=== PATIENT | male | born 1940 | race Caucasian/White ===

== ENCOUNTER 2018-02-13 12:39 | Day surgery (SDC) | payer OTHER ==
[2018-02-13] MEDS: NS 1,000 ML IV (12:45)
[2018-02-13] MEDS ORDERED: PROPOFOL 200 MG/20 ML VIAL As Ordered (14:27)
[2018-02-13] MEDS ORDERED: LIDOCAINE 2% INJ 100 MG/5 ML SDV (FOR ANES.) As Ordered (14:27)
== END 2018-02-13 15:18 | disposition home or self-care (01) ==
LOC: M OPP 12:39
DX: K62.5 Hemorrhage of anus and rectum (principal); R63.4 Abnormal weight loss; K56.699 Other intestinal obstruction unspecified as to partial versus complete obstruction; K64.0 First degree hemorrhoids; K57.30 Diverticulosis of large intestine without perforation or abscess without bleeding; I10 Essential (primary) hypertension; I25.10 Atherosclerotic heart disease of native coronary artery without angina pectoris; Z86.14 Personal history of Methicillin resistant Staphylococcus aureus infection; F41.9 Anxiety disorder, unspecified; G47.30 Sleep apnea, unspecified; F17.210 Nicotine dependence, cigarettes, uncomplicated; Z79.82 Long term (current) use of aspirin; Z79.899 Other long term (current) drug therapy
CPT/HCPCS: 45378

== ENCOUNTER 2019-09-30 16:34 | Inpatient (IN) | payer OTHER, MEDICARE ==
[~2019-09-30] VITALS: Ht 170.2 cm; Wt 83.9 kg
[~2019-09-30 16:34] MED LIST: ALLO100T PO; ASPI81TA26 PO; COLA100C5 PO; LISI40TA PO; METO1TAB33 PO; PRAZ2CAP PO; TRAZ-257 PO; VENL1TAB35 PO
[2019-09-30] MEDS ORDERED: NS 1,000 ML IV ONE (17:15)
[2019-09-30] MEDS ORDERED: SIMETHICONE 80 MG CHEW TAB PO ONE (17:15)
[2019-09-30 17:50] LABS: BASO # 0.1 10^3/uL (0.0-0.2); BASO % 0.3 % (0.0-1.0); EOS % 0.1 % (0.0-3.0); HEMATOCRIT 55.7 % (42.0-52.0); HEMOGLOBIN 18.5 g/dl (13.5-17.5); LYMPH # 1.4 10^3/uL (1.5-5.0); LYMPH % 8.4 % (24.0-44.0); MEAN CORPUSCULAR HEMOGLOBIN 31.6 pg (27.0-33.0); MEAN CORPUSCULAR HGB CONC 33.2 g/dl (32.0-36.5); MEAN CORPUSCULAR VOLUME 95.2 fl (80.0-96.0); MONO # 1.2 10^3/uL (0.0-0.8); MONO % 7.1 % (0.0-5.0); NEUTROPHILS # 14.1 10^3/uL (1.5-8.5); NEUTROPHILS % 83.6 % (36.0-66.0); PLATELET COUNT, AUTOMATED 313 10^3/uL (150-450); RED BLOOD COUNT 5.85 10^6/uL (4.30-6.10); WHITE BLOOD COUNT 16.9 10^3/uL (4.0-10.0)
--- NOTE | 2019-09-30 18:03 | REP ---
CHEST, SINGLE VIEW: Single view of the chest is performed and compared to prior study of 12/26/2011. There is mild interstitial fibrosis. There is no acute infiltrate. Heart is not enlarged. Mediastinal silhouette is unchanged. Metallic clips are seen over the left hemithorax. IMPRESSION: Stable chronic findings without acute infiltrate. Electronically Signed by Christiano Van MD 09/30/2019 08:01 P
[2019-09-30] MEDS: GASTROGRAFIN SOLUTION 30ML PO SCH ×2 (18:06→18:44)
[2019-09-30 18:11] LABS: ALBUMIN 3.9 GM/DL (3.2-5.2); ALT/SGPT 29 U/L (12-78); AMYLASE 29 U/L (25-115); BILIRUBIN,DIRECT 0.3 MG/DL (0.0-0.2); BILIRUBIN,TOTAL 0.9 MG/DL (0.2-1.0); BLOOD UREA NITROGEN 16 MG/DL (7-18); CALCIUM LEVEL 8.9 MG/DL (8.8-10.2); CARBON DIOXIDE LEVEL 29 MEQ/L (21-32); CHLORIDE LEVEL 96 MEQ/L (98-107); CK-MB VALUE MASS 2.5 NG/ML (<3.6); CPK CREATINE PHOSPHOKINASE 85 U/L (39-308); CREATININE FOR GFR 1.24 MG/DL (0.70-1.30); GLOMERULAR FILTRATION RATE 59.9 (>42); GLUCOSE, FASTING 149 MG/DL (70-100); LIPASE 31 U/L (73-393); MB/CK RELATIVE INDEX 2.94 (< OR =4); NT-PRO BNP 325 PG/ML (<450); POTASSIUM SERUM 3.7 MEQ/L (3.5-5.1); SODIUM LEVEL 134 MEQ/L (136-145); TOTAL PROTEIN 8.6 GM/DL (6.4-8.2); TROPONIN I < 0.02 NG/ML (< 0.10)
[2019-09-30] MEDS ORDERED: ISOVUE-370 76% 100ML VIAL As Ordered ONE (19:44)
--- NOTE | 2019-09-30 20:45 | REPVR ---
PROCEDURE INFORMATION: Exam: CT Abdomen And Pelvis With Contrast Exam date and time: 09/30/2019 8:07 PM Age: 79 years old Clinical indication: Abdominal pain; Additional info: Rlq abd pain TECHNIQUE: Imaging protocol: Computed tomography of the abdomen and pelvis with intravenous contrast. Radiation optimization: All CT scans at this facility use at least one of these dose optimization techniques: automated exposure control; mA and/or kV adjustment per patient size (includes targeted exams where dose is matched to clinical indication); or iterative reconstruction. Contrast material: ISO 370; Contrast volume: 100 ml; Contrast route: IV; COMPARISON: No relevant prior studies available. FINDINGS: Heart: The heart is mildly enlarged. There is thickening of the wall of the right ventricle at the apex of the heart. Coronary artery and aortic valve calcifications are present. There is no pericardial effusion. Lungs: There are centrilobular emphysematous changes and subpleural reticulation in the lung bases. Mediastinum: There is a small sliding hiatal hernia. Liver: There is fatty infiltration of the liver with focal fatty sparing adjacent to the gallbladder fossa. The contour of the liver is smooth. No liver mass or hepatomegaly is noted. Gallbladder and bile ducts: The gallbladder is distended. No calcified gallstones are seen. No gallbladder wall thickening, pericholecystic fluid, or pericholecystic inflammatory changes are identified. No dilation of the bile ducts is noted. No calcified stones are seen in the common bile duct. Pancreas: There are a few calcifications in the pancreas, which are the sequela of chronic pancreatitis. There is no inflammatory fat stranding around the pancreas to indicate acute pancreatitis. No pancreatic mass is noted. There is no dilation of the main pancreatic duct. Spleen: Normal. No splenomegaly is noted. Adrenals: Normal. No adrenal mass is noted. Kidneys and ureters: There are bilateral benign-appearing renal cysts, the largest measuring 4 cm in the inferior pole of right kidney for which follow-up is not necessary. No solid renal mass is noted. No stones are noted in the kidneys or ureters. There is no hydronephrosis or hydroureter. There are no wedge-shaped areas of low attenuation in the kidneys to suggest pyelonephritis. There is no renal abscess or perinephric fluid collection. Stomach and bowel: There is thickening of the wall of the gastric antrum, which is compatible with antral gastritis. There are mildly dilated loops of small bowel measuring up to 3 cm in diameter with air-fluid levels. The majority of the large bowel is also dilated and contains air-fluid levels, with the cecum measuring 8.3 cm in diameter, the ascending colon measuring 5.5 cm in diameter, the transverse colon measuring 6.9 cm in diameter, and the descending colon measuring 6 cm in diameter. There is a transition point from dilated to nondilated bowel at the level of the rectosigmoid junction, where there is an approximately 7.5 cm in length region of circumferential narrowing and masslike thickening of the wall of the bowel, which is highly suspicious for malignancy (image 133 of the axial series 201 and image 69 of the sagittal series 203). There is colonic diverticulosis without evidence for diverticulitis. No pneumatosis intestinalis, volvulus, intussusception, or perforated viscus is noted. Appendix: The retrocecal appendix is dilated, filled with fluid, and measures up to 10 mm in diameter with associated mucosal enhancement, mild fat stranding around the appendix, and the trace amount of free fluid around the tip of the appendix, which can be seen with acute retrocecal appendicitis (images 102-104 of the axial series 201 and images 51-68 of the coronal series 202). No appendicolith is noted. Intraperitoneal space: No free air. No ascites. No asbcess. There is a small amount of free fluid in the abdomen and pelvis. No abscess or intraperitoneal free air is noted. Retroperitoneal space: No fluid collection. No mass. Vasculature: The abdominal aorta is patent, normal in caliber, and there is no dissection. No occlusion of the iliac arteries, common femoral arteries, renal arteries, celiac artery, superior mesenteric artery, and inferior mesenteric artery is noted. There are extensive atherosclerotic calcifications. The hepatic veins, portal veins, splenic vein, superior mesenteric vein, inferior mesenteric vein, and renal veins are patent. Lymph nodes: No enlarged lymph nodes. Bladder: The partially distended urinary bladder is unremarkable. No stones or masses are seen in the bladder. Reproductive: There are calcifications in the prostate gland. The seminal vesicles are unremarkable. Bones/joints: No fracture or dislocation is noted. There is no suspicious osteolytic or osteoblastic lesion. There are degenerative changes involving the lumbar spine. There is mild osteoarthritis of both hip joints. There is partial ankylosis of the sacroiliac joints. Soft tissues: There is a tiny fat containing umbilical hernia. IMPRESSION: 1. Evidence for acute retrocecal appendicitis. 2. Large bowel obstruction secondary to an approximately 7.5 cm in length region of circumferential narrowing and masslike thickening of the wall of the rectosigmoid junction, which is highly suspicious for malignancy. 3. Antral gastritis. 4. Colonic diverticulosis without evidence for diverticulitis. 5. Fatty liver. Electronically signed by: Carlos Corona On 09/30/2019 20:44:13 PM
[2019-09-30] MEDS ORDERED: AMMO12LO TOP (22:15)
[2019-09-30] MEDS ORDERED: GNP8.6TA PO (22:15)
[2019-09-30] MEDS ORDERED: METO25TA4 PO (22:15)
[2019-09-30] MEDS ORDERED: REFR0.5D8 OU (22:15)
[2019-09-30] MEDS ORDERED: UREA20CR4 TOP (22:15)
[2019-09-30] MEDS ORDERED: MORPHINE 4 MG/ML 1ML VIAL/SYRINGE (J2270) IV ONE (22:15)
[2019-09-30] MEDS ORDERED: THERTAB20 PO (22:15)
--- NOTE | 2019-09-30 22:16 | HPEPDOC ---
[facility] Medical History & Physical Date of Admission September 30, 2019 Date of Service: September 30, 2019 Attending Physician: AGNIESZKA JOSEPH MD History and Physical TIME OF SERVICE: 11:15 PM CHIEF COMPLAINT: Abdominal pain HISTORY OF PRESENT ILLNESS: This is a 79-year-old gentleman who presents with complaints of aching 8 out of 10 in severity, right lower abdominal pain that began last . He consulted his PCP who started him on MiraLAX for constipation. He did have small bowel movements with abdominal pain progressively became worse. Today he decided come to the hospital because he couldn't eat without vomiting. He is also complaining of a chronic cough and acute elevation in his blood pressure. On Sunday, his blood pressure is 193/110, but he reports it's "usually good." Per discussion with Dr. Mcknight CT showed narrowing with a possible mass at the rectosigmoid colon; these findings were discussed with Dr. Fitzgerald who added that the patient previously had a colonoscopy with a stricture in the past and was instructed to follow up to have barium studies, but he didn't follow-up. Per Dr.Schiff Marie is aware of the findings of possible appendicitis on CT. NG tube has been placed. REVIEW OF SYSTEMS: 12 point review of systems negative except as listed in HPI PAST MEDICAL/ SURGICAL HISTORY: Chronic CAD Angioplasty 1994 Chronic Hypertension Fatty liver Diverticulosis Sleep apnea not compliant w CPAP Anxiety / depression/PTSD SOCIAL HISTORY: Smokes Is a FAMILY HISTORY: Denies having a family history of medical problems ALLERGIES: Please see below. HOME MEDICATIONS: Please see below. PHYSICAL EXAMINATION: Vital Signs Date Time Temp Pulse Resp B/P (MAP) Pulse Ox O2 Delivery O2 Flow Rate FiO2 09/30/19 16:35 96.2 109 18 170/90 (116) 94 Room Air 09/30/19 21:07 2.0 GEN: Obese / well developed/ NAD INTEGUMENT: not flushed/ not jaundice HEENT: NCAT / mucus membranes moist and pink / NC in place CVS: RRR/NMRG/ radial and dorsalis pedis pulses intact /trace lower extremity edema LUNGS: lungs are clear to auscultation bilaterally on room air ABDOMEN: Contour ( obese ) / soft & he doesn't grimace with palpation NEURO: CN 2-12 are grossly intact / speech is not dysarthric PSYCH: alert and oriented to person place and time/ able to understand and follow all commands LABORATORY DATA: Immature Granulocyte % (Auto) 0.5, Neutrophils (%) (Auto) 83.6H, Lymphocytes (%) (Auto) 8.4L, Monocytes (%) (Auto) 7.1H, Eosinophils (%) (Auto) 0.1, Basophils (%) (Auto) 0.3, Neutrophils # (Auto) 14.1H, Lymphocytes # (Auto) 1.4L, Monocytes # (Auto) 1.2H, Eosinophils # (Auto) 0.0, Basophils # (Auto) 0.1, Nucleated Red Blood Cells % (auto) 0.0, Urine Color SOL, Urine Appearance HAZY, Urine pH 5.0, Urine Specific [place] 1.033, Urine Protein 2+H, Urine Glucose (UA) NEGATIVE, Urine Ketones 1+H, Urine Blood NEGATIVE, Urine Nitrite NEGATIVE, Urine Bilirubin 2+H, Urine Urobilinogen 4.0H, Urine Leukocyte Esterase TRACEH, Urine WBC (Auto) 13H, Urine RBC (Auto) 3, Urine Hyaline Casts (Auto) 0, Urine Bacteria (Auto) NEGATIVE, Urine Squamous Epithelial Cells 1, Urine Mucus (Auto) SMALL, Urine Sperm (Auto) , Anion Gap 9, Glomerular Filtration Rate 59.9, Lactic Acid Level 1.4, Calcium Level 8.9, Total Bilirubin 0.9, Direct Bilirubin 0.3H, As partate Amino Transf (AST/SGOT) 16, Alanine Aminotransferase (ALT/SGPT) 29, Alkaline Phosphatase 110, Total Creatine Kinase 85, Creatine Kinase MB 2.5, Creatine Kinase MB Relative Index 2.94, Troponin I < 0.02, IB-Moe-Q-Type Natriuretic Peptide 325, Total Protein 8.6H, Albumin 3.9, Albumin/Globulin Ratio 0.83L, Amylase Level 29, Lipase 31L IMAGING: Chest x-ray "IMPRESSION: Stable chronic findings without acute infiltrate." CT abdomen and pelvis "IMPRESSION: 1. Evidence for acute retrocecal appendicitis. 2. Large bowel obstruction secondary to an approximately 7.5 cm in length region of circumferential narrowing and masslike thickening of the wall of the rectosigmoid junction, which is highly suspicious for malignancy. 3. Antral gastritis. 4. Colonic diverticulosis without evidence for diverticulitis. 5. Fatty liver." MICROBIOLOGY: UCx pending.. ASSESSMENT: Mr. Abreu is a 79-year-old with a history of chronic CAD, chronic HTN, fatty liver, diverticulosis, anxiety, depression, and tobacco abuse who is admitted primarily for evaluation of a small bowel obstruction. PLAN: 1. SBO - admit to [facility]/ NPO / IV fluids/continue with NG to suction,/follow up with general surgeon Dr. Fitzgerald 2. Gastritis - nothing by mouth/IV fluids/PPI/trend hemoglobin 3. Possible Appendicitis - f/u 4. SIRS? /Sepsis possibly secondary to GI source. SIRS criteria include tachycar amy, leukocytosis- IV fluids/Rocephin / follow-up lactic acid 5. Chronic CAD - hold ASA 6. Chronic HTN - resume home meds once they are reconciled 7. Depression /Anxiety - resume home meds once they are reconciled 8. Tobacco Abuse - smoking cessation education 9. Obesity complicates care - f/u A1C DVT PROPHYLAXIS: SCDs DISPOSITION: home after more than 2 midnight's stay Home Medications Scheduled Aspirin (Aspirin EC) 81 Mg Tab, 81 MG PO DAILY Lisinopril (Lisinopril) 40 Mg Tab, 20 MG PO DAILY Metoprolol Tartrate (Metoprolol Tartrate) 25 Mg Tablet, 25 MG PO BID Multivit,Calc,Mins/Iron/Folic (Thera-M Tablet) 1 Each Tablet, 1 TAB PO DAILY Prazosin HCl (Prazosin HCl) 1 Mg Capsule, 1 MG PO QHS Trazodone HCl (Trazodone HCl) 100 Mg Tab, 300 MG PO QHS Venlafaxine HCl (Venlafaxine HCl ER) 75 Mg Cap.er.24h, 225 MG PO QHS Scheduled PRN Ammonium Lactate (Ammonium Lactate) 12% Lotion, 1 APLCT TOP DAILY PRN for DRY SKIN APPLY FROM NECK DOWN Carboxymethylcellulose Sodium (Refresh Tears) 15 Ml Drops, 1 DROP OU QID PRN for DRY EYES Sennosides (Senna Lax) 8.6 Mg Tablet, 2 TAB PO TID PRN for CONSTIPATION Urea (Urea) 85 Gm Cream..g., 1 APLCT TOP DAILY PRN for DRY SKIN APPLY TO FEET Allergies Coded Allergies: No Known Allergies (Unverified , 03/25/14) A-FIB/CHADSVASC A-FIB History Current/History of A-Fib/PAF?: No Current PO Anticoag Therapy: No AGNIESZKA JOSEPH MD September 30, 2019 22:16
[2019-09-30] MEDS ORDERED: MED REC COMMENT (22:21)
[2019-09-30] MEDS: cefTRIAXone SOD 2 GM in D5W MINI-BAG PLUS 50 ML IV SCH (22:50)
[2019-09-30] MEDS: NS 1,000 ML IV SCH (22:50)
[2019-09-30] MEDS: PANTOPRAZOLE 40MG VIAL (C9113 PER 1) IV SCH (22:50)
[2019-09-30] MEDS ORDERED: cefTRIAXone SOD 2 GM VIAL (J0696 PER 250MG) IV SCH (23:00)
[2019-09-30] MEDS ORDERED: cefTRIAXone SOD 2 GM VIAL (J0696 PER 250MG) IM SCH (23:00)
[2019-09-30] MEDS ORDERED: POLYVINYL ALCOHOL OPHTH SOLN 15 ML(LIQUITEARS) OU PRN (23:45)
[2019-09-30] MEDS ORDERED: LACTIC ACID 12% LOTION 225 GM BTL TOP PRN ×2 (23:45)
[2019-09-30] MEDS ORDERED: MORPHINE 4 MG/ML 1ML VIAL/SYRINGE (J2270) IV PRN (23:45)
[2019-09-30] MEDS ORDERED: ACETAMINOPHEN *IV* 1,000 MG in IV 1 EA IV PRN (23:45)
[2019-10-01 00:39] VITALS: BP 172/98
[2019-10-01] MEDS: METOPROLOL TART 25 MG TABLET PO SCH ×3 (00:59→20:35)
--- NOTE | 2019-10-01 01:55 | REP ---
Clinical: Nasogastric tube placement . Comparison: 09/30/2019 at 17:17 . Findings: Nasogastric tube in satisfactory position below left hemidiaphragm. The mediastinum and cardiac silhouette are stable and within normal limits for portable technique. The lung ba demonstrate diffusely increased interstitial markings without acute consolidation, effusion, or pneumothorax. Skeletal structures are intact. Impression: Nasogastric tube in satisfactory position. Chronic-appearing interstitial changes. No acute cardiopulmonary process appreciated. Electronically Signed by Sincere Jack MD 10/01/2019 01:46 A
[2019-10-01 06:00] VITALS: BP 179/56
[2019-10-01 06:58] LABS: HEMATOCRIT 54.3 % (42.0-52.0); HEMOGLOBIN 17.9 g/dl (13.5-17.5); PLATELET COUNT, AUTOMATED 276 10^3/uL (150-450); WHITE BLOOD COUNT 14.6 10^3/uL (4.0-10.0)
[2019-10-01 07:27] LABS: INR 1.13; PROTHROMBIN TIME 14.2 SECONDS (11.8-14.0)
[2019-10-01 07:33] LABS: BLOOD UREA NITROGEN 15 MG/DL (7-18); CALCIUM LEVEL 8.5 MG/DL (8.8-10.2); CARBON DIOXIDE LEVEL 26 MEQ/L (21-32); CHLORIDE LEVEL 103 MEQ/L (98-107); CREATININE FOR GFR 0.95 MG/DL (0.70-1.30); GLOMERULAR FILTRATION RATE > 60.0 (>42); GLUCOSE, FASTING 118 MG/DL (70-100); POTASSIUM SERUM 4.2 MEQ/L (3.5-5.1); SODIUM LEVEL 135 MEQ/L (136-145)
[2019-10-01] MEDS ORDERED: PRAZ1CAP46 PO (08:37)
[2019-10-01] MEDS ORDERED: VENL75CA2 PO (08:37)
[2019-10-01] MEDS ORDERED: lisinopriL 20 MG TAB PO SCH (09:00)
--- NOTE | 2019-10-01 09:01 | ECGEPIP ---
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
[2019-10-01] MEDS: PANTOPRAZOLE 40MG VIAL (C9113 PER 1) IV SCH ×2 (09:45→20:35)
[2019-10-01] MEDS: NS 1,000 ML IV SCH ×2 (09:47→18:38)
[2019-10-01] MEDS: NICOTINE 21MG/24HR 1 EA TRANSDERMAL TD SCH (11:17)
[2019-10-01 14:00] VITALS: BP 187/100
[2019-10-01] MEDS ORDERED: LIDOCAINE 1% MDV 20ML VIAL As Ordered ONE (14:44)
[2019-10-01 16:00] VITALS: BP 160/90
[2019-10-01] MEDS ORDERED: MULTIVITAMIN -ADULT INJECTION 10 ML, CR/CU/SE/MN/ZN INJ 1 ML in AMINO AC/ELECTROLYTE/DE... IV SCH (18:00)
[2019-10-01] MEDS ORDERED: FAT EMULSION IV 20% 500 ML IV SCH (18:00)
[2019-10-01] MEDS: HumaLOG INSULIN (NovoLOG) PER UNIT SC SCH (18:00)
[2019-10-01] MEDS: SODIUM CHLORIDE 0.9% INJ 10 ML SYR IV SCH (18:00)
--- NOTE | 2019-10-01 20:26 | IPNPDOC ---
Date Seen The patient was seen on 10/01/19. Progress Note SUBJECTIVE: Feels SOB with NG tube, O2 for comfort. Surgery possible in next several days, IV ceftriaxone ordered. BP high, hydralazine PRN IV. NG tube remains to suction. PICC line ordered for TPN to start. NS increased to 125 cc/hr. Denies chest pain, nausea, fevers or chills. OBJECTIVE: VITAL SIGNS: Please see below GEN: Obese / well developed/ NAD INTEGUMENT: not flushed/ not jaundice HEENT: NCAT / mucus membranes moist and pink / NG in place CVS: RRR/NMRG/ radial and dorsalis pedis pulses intact /trace lower extremity edema LUNGS: lungs are clear to auscultation bilaterally on room air ABDOMEN: Contour ( obese ) / distended, decreased BS in 4 quadrants NEURO: CN 2-12 are grossly intact / speech is not dysarthric PSYCH: alert and oriented to person place and time/ able to understand and follow all commands LABORATORY DATA: Please see below IMAGING: No new imaging. MICROBIOLOGY: UCx pending ASSESSMENT: Mr. Abreu is a 79-year-old admitted for further treatment and management of small bowel obstruction, retrocecal appendicitis. PLAN: 1. SBO. NG tube in place with intermittent suction. C/w increased IVFs, pain control. PICC line ordered, TPN to start. Possible surgery in next several days. Dr. Gleason taking over for Dr. Fitzgerald. 2. Gastritis. NPO/IV fluids/PPI. 3. Retrocecal appendicitis. Surgery following, WBC improving. On ceftriaxone. 4. UTI. UCx pending. Ceftriaxone (day 2). WBC trending down, afebrile. 5. Chronic CAD. Hold ASA. Denies chest pain. 6 Depression /Anxiety. Resume home meds when taking PO. 7 Tobacco Abuse - smoking cessation education, nicotine patch added. 8. Obesity . F/u HbA1c, lipid panel. 9. DVT px. SCDs. Resume heparin after PICC placed. DISPOSITION: Currently under inpatient status. Plan is discharge home when medically improved. VS, I&O, 24H, Fishbone Vital Signs/I&O Vital Signs Date Time Temp Pulse Resp B/P (MAP) Pulse Ox O2 Delivery O2 Flow Rate FiO2 10/01/19 16:00 160/90 (113) 10/01/19 15:40 75 20 97 Nasal Cannula 2 10/01/19 15:00 97.5 I&O- Last 24 Hours up to 6 AM 10/01/19 06:00 Intake Total 480 ml Output Total 400 ml Balance 80 ml Laboratory Data 24H LABS Laboratory Tests 2 09/30/19 22:03: Coronavirus (COVID-19)(PCR) NEGATIVE 10/01/19 00:52: Bedside Glucose (Misc Panel) 133H 10/01/19 06:35: Nucleated Red Blood Cells % (auto) 0.0, Anion Gap 6L, Glomerular Filtration Rate > 60.0, Calcium Level 8.5L 10/01/19 07:05: Prothrombin Time 14.2H, Prothromb Time International Ratio 1.13 10/01/19 11:19: Methicillin-Resist S.aureus DNA PCR NOT DETECTED 10/01/19 11:41: Bedside Glucose (Misc Panel) 111H 10/01/19 17:53: Bedside Glucose (Misc Panel) 85 CBC/BMP Laboratory Tests 10/01/19 06:35 Microbiology Microbiology 09/30/19 Urine Culture, Received Pending Current Medications Current Medications Medications (Trade) Dose Ordered Sig/Tri Route PRN Reason Start Time Stop Time Status Last Admin Dose Admin Acetaminophen 1000 mg/IV Miscellaneous Supplies 100 ml @ 400 mls/hr Q8HP PRN IV pain 1-5 09/30/19 23:45 Artificial Tears (Akwa Tears) 2 drop QIDP PRN OU DRY EYES 09/30/19 23:45 Ceftriaxone Sodium 2 gm/ Dextrose 50 ml @ 50 mls/hr Q24H IV 09/30/19 23:00 09/30/19 22:50 Ceftriaxone Sodium (Rocephin) 2 gm Q24H IM 09/30/19 23:00 09/30/19 22:27 DC Ceftriaxone Sodium (Rocephin) 2 gm Q24H IV 09/30/19 23:00 09/30/19 22:32 DC Diatrizoate Meglum/ Diatrizoate Sod (Gastrografin) 10 ml Q30M PO 09/30/19 18:00 09/30/19 18:31 DC 09/30/19 18:44 Fat Emulsion Intravenous 500 ml @ 20 mls/hr ONCE@1800 IV 10/01/19 18:00 10/02/19 17:59 10/01/19 18:17 Heparin Sodium (Heparin (Flush)) 200 units ASDIRECTED PRN IV SEE LABEL COMMENTS 10/01/19 16:00 Heparin Sodium (Heparin (Flush)) 200 units PICC IV 10/01/19 18:00 Home Med (Med Rec Complete!) ASDIRECTED XX 09/30/19 22:30 09/30/19 22:23 DC Home Med (Med Rec Complete!) ASDIRECTED XX 10/01/19 08:45 10/01/19 08:40 DC Insulin Human Lispro (HumaLOG INSULIN) See Protocol Table Q6H SC 10/01/19 18:00 10/02/19 12:01 Lactic Acid (Lac-Hydrin 12% Lotion) 1 dose DAILY PRN TOP DRY SKIN 09/30/19 23:45 09/30/19 23:42 DC Lactic Acid (Lac-Hydrin 12% Lotion) APPLY TO AFFECTED AREA DAILY PRN TOP DRY SKIN 09/30/19 23:45 Lisinopril (Prinivil) 20 mg DAILY PO 10/01/19 09:00 10/01/19 09:46 Metoprolol Tartrate (Lopressor) 25 mg BID PO 09/30/19 21:00 10/01/19 09:46 Morphine Sulfate (Morphine Sulfate Inj) 4 mg Q3HP PRN IV pain 5-10 09/30/19 23:45 Multivitamins 10 ml/Chromium/ Copper/Manganese/ Seleni/Zn 1 ml/ Amino Ac/Electrol/ Dextrose/Calcium 2,011 ml @ 75 mls/hr ONCE@1800 IV 10/01/19 18:00 10/02/19 17:59 10/01/19 18:17 Nicotine (Nicoderm Cq 21mg) 1 patch DAILY TD 10/01/19 09:00 10/01/19 11:17 Pantoprazole Sodium (Protonix) 40 mg BID IV 09/30/19 21:00 10/01/19 09:45 Sodium Chloride 1,000 ml @ 50 mls/hr Q20H IV 09/30/19 22:15 10/01/19 18:38 Sodium Chloride (Saline Lock Flush) 10 ml ASDIRECTED PRN IV SEE LABEL COMMENTS 10/01/19 16:00 Sodium Chloride (Saline Lock Flush) 10 ml PICC IV 10/01/19 18:00 Allergies Coded Allergies: No Known Allergies (Unverified , 03/25/14) Delmi Hector MD October 01, 2019 20:26
[2019-10-01 22:00] VITALS: BP 166/88
[2019-10-01] MEDS: hydrALAZINE 20MG/ML 1ML VIAL (J0360 PER 20MG) IV SCH (22:00)
[2019-10-01] MEDS ORDERED: traZODone 50 MG TAB PO ONE (22:00)
[2019-10-01] MEDS: HEPARIN SOD (PORCINE) 5000UNITS/ML VIAL (J1644 PER 1000UNITS) SQ SCH (22:10)
[2019-10-01] MEDS: cefTRIAXone SOD 2 GM in D5W MINI-BAG PLUS 50 ML IV SCH (22:11)
[2019-10-02] VITALS (7 sets, daily range): BP systolic 136–166; BP diastolic 68–82
[2019-10-02] MEDS: HumaLOG INSULIN (NovoLOG) PER UNIT SC SCH ×4 (00:18→18:00)
[2019-10-02] MEDS: hydrALAZINE 20MG/ML 1ML VIAL (J0360 PER 20MG) IV SCH (05:00)
[2019-10-02] MEDS: SODIUM CHLORIDE 0.9% INJ 10 ML SYR IV SCH ×2 (06:00→18:00)
[2019-10-02 06:21] LABS: HEMATOCRIT 49.1 % (42.0-52.0); HEMOGLOBIN 16.8 g/dl (13.5-17.5); MEAN CORPUSCULAR HEMOGLOBIN 33.1 pg (27.0-33.0); MEAN CORPUSCULAR HGB CONC 34.2 g/dl (32.0-36.5); MEAN CORPUSCULAR VOLUME 96.8 fl (80.0-96.0); PLATELET COUNT, AUTOMATED 256 10^3/uL (150-450); RED BLOOD COUNT 5.07 10^6/uL (4.30-6.10); WHITE BLOOD COUNT 11.9 10^3/uL (4.0-10.0)
[2019-10-02] MEDS: HEPARIN SOD (PORCINE) 5000UNITS/ML VIAL (J1644 PER 1000UNITS) SQ SCH (06:27)
[2019-10-02 06:41] LABS: ALBUMIN 3.1 GM/DL (3.2-5.2); ALT/SGPT 23 U/L (12-78); BILIRUBIN,TOTAL 0.4 MG/DL (0.2-1.0); BLOOD UREA NITROGEN 14 MG/DL (7-18); CALCIUM LEVEL 7.9 MG/DL (8.8-10.2); CARBON DIOXIDE LEVEL 29 MEQ/L (21-32); CHLORIDE LEVEL 105 MEQ/L (98-107); CHOLESTEROL LEVEL 152 MG/DL (<200); CHOLESTEROL RISK RATIO 5.846 (<5); CREATININE FOR GFR 0.88 MG/DL (0.70-1.30); GLOMERULAR FILTRATION RATE > 60.0 (>42); GLUCOSE, FASTING 116 MG/DL (70-100); HDL CHOLESTEROL 26 MG/DL (>40); LDL CHOLESTEROL 95 MG/DL (<100); NON-HDL-C 126 MG/DL; SODIUM LEVEL 141 MEQ/L (136-145); TOTAL PROTEIN 6.1 GM/DL (6.4-8.2); TRIGLYCERIDES LEVEL 156 MG/DL (<150)
[2019-10-02 08:18] LABS: HEMOGLOBIN A1c 6.2 %
[2019-10-02] MEDS: PANTOPRAZOLE 40MG VIAL (C9113 PER 1) IV SCH (09:12)
[2019-10-02] MEDS: NICOTINE 21MG/24HR 1 EA TRANSDERMAL TD SCH (09:12)
[2019-10-02] MEDS: METOPROLOL TART 25 MG TABLET PO SCH ×2 (09:13→22:55)
[2019-10-02] MEDS ORDERED: propofoL 200 MG/20 ML VIAL As Ordered ONE (15:29)
[2019-10-02] MEDS ORDERED: SUGAMMADEX SODIUM 500 MG/5 ML VIAL (BRIDION) As Ordered ONE (15:29)
[2019-10-02] MEDS ORDERED: METOCLOPRAMIDE INJ 10MG/2ML VIAL (J2765 PER 1) As Ordered ONE (15:29)
[2019-10-02] MEDS ORDERED: ONDANSETRON 4MG/2ML VIAL As Ordered ONE (15:29)
[2019-10-02] MEDS ORDERED: MIDAZOLAM INJ 2MG/2ML VIAL (J2250 PER 1MG) As Ordered ONE (15:29)
[2019-10-02] MEDS ORDERED: fentaNYL 250 MCG/5 ML INJECTION (J3010) As Ordered ONE (15:29)
[2019-10-02] MEDS ORDERED: ROCURONIUM BROMIDE 50 MG/5 ML VIAL As Ordered ONE (15:29)
[2019-10-02] MEDS ORDERED: DESFLURANE 240 ML INHALANT As Ordered ONE (15:29)
[2019-10-02] MEDS ORDERED: dexameTHASONE 4 MG/ML 1ML VIAL (J1100 PER 1MG) As Ordered ONE (15:29)
[2019-10-02] MEDS ORDERED: LIDOCAINE 2% 100MG/5ML SDV (FOR ANES.) As Ordered ONE (15:29)
[2019-10-02] MEDS ORDERED: BUPIVACAINE HCL 0.25% 30ML VIAL As Ordered ONE (15:41)
[2019-10-02] MEDS ORDERED: ERTAPENEM 1GM VIAL(INVanz) (J1335 PER 500MG) As Ordered ONE (15:49)
[2019-10-02] MEDS: NS 1,000 ML IV SCH (15:55)
[2019-10-02] MEDS ORDERED: PHENYLephrine HCL 500 MCG/5 ML (100MCG/ML) SYRINGE (J2370) As Ordered ONE ×2 (16:36→19:04)
[2019-10-02] MEDS ORDERED: ePHEDrine SULFATE 25 MG/5 ML(5MG/ML) SYRINGE As Ordered ONE (16:41)
--- NOTE | 2019-10-02 16:47 | REP ---
Procedure: PICC line insertion with Lex The procedure was performed under the direct supervision of Dr. Van. The risks and benefits of the procedure were explained to the patient and informed consent was obtained. The right basilic vein was localized using ultrasound guidance. The skin was prepped and draped in a sterile fashion. 2% lidocaine was used as a local anesthetic. Using ultrasound guidance the basilic vein was cannulated and a 0.018 guidewire was inserted and advanced to the SVC using fluoroscopic guidance. The needle was removed and a 5.5 Latvian dilator and peel-away sheath was inserted over the guide wire. A 5.5 Latvian dual lumen catheter was cut to length of 39 cm. The dilator was removed and the catheter was inserted over the guide wire with the tip ending in the SVC. The peel-away sheath was removed and the catheter was flushed with heparinized saline as per Hospital protocol. The catheter was affixed to the skin and a sterile dressing was applied. The patient tolerated the procedure well and there were no immediate complications. 0.2 minutes of fluoro time was utilized for this procedure. Electronically Signed by PREETI Vo 10/02/2019 04:37 P Electronically Signed by Christiano Van MD 10/02/2019 04:38 P
[2019-10-02] MEDS ORDERED: HYDROmorphone HCL 2 MG/ML 1ML VIAL (J1170) As Ordered ONE (16:55)
[2019-10-02] MEDS ORDERED: FAT EMULSION IV 20% 500 ML IV SCH (18:00)
[2019-10-02] MEDS ORDERED: AMINO AC/ELECTROLYTE/DEX/CALC 2,000 ML IV SCH (18:00)
[2019-10-02] MEDS ORDERED: ACETAMINOPHEN 1000MG 100ML IV BTL (OFIRMEV) (J0131 PER 10MG) As Ordered ONE (19:02)
--- NOTE | 2019-10-02 19:17 | IPNPDOC ---
Date Seen The patient was seen on 10/02/19. Progress Note SUBJECTIVE: Minimal at bedside canister with intermittent suction. Surgery today as abdomen is still quite distended. Discussed with Dr. Gleason. BP slightly improved. PICC line in place. Denies chest pain, nausea, fevers or chills. OBJECTIVE: VITAL SIGNS: Please see below GEN: Obese / well developed/ NAD INTEGUMENT: not flushed/ not jaundice HEENT: NCAT / mucus membranes moist and pink / NG in place CVS: RRR/NMRG/ radial and dorsalis pedis pulses intact /trace lower extremity edema LUNGS: lungs are clear to auscultation bilaterally on room air ABDOMEN: Contour ( obese ) / distended, decreased BS in 4 quadrants NEURO: CN 2-12 are grossly intact / speech is not dysarthric PSYCH: alert and oriented to person place and time/ able to understand and follow all commands LABORATORY DATA: Please see below IMAGING: No new imaging. MICROBIOLOGY: UCx- NG ASSESSMENT: Mr. Abreu is a 79-year-old admitted for further treatment and management of small bowel obstruction, retrocecal appendicitis. PLAN: 1. SBO. Surgery today. NG tube in place with intermittent suction, little output. C/w increased IVFs, pain control. PICC line in place with, TPN to start. Will need colostomy and later surgery to close according to surgery. 2. Gastritis. NPO/IV fluids/PPI. 3. Retrocecal appendicitis. Surgery following, WBC improving. On ceftriaxone. 4. UTI. UCx NG. Ceftriaxone (day 3). WBC 11, afebrile. 5. Chronic CAD. Hold ASA. Denies chest pain. 6 Depression /Anxiety. Resume home meds when taking PO. 7 Tobacco Abuse. Smoking cessation education, nicotine patch added. 8. Obesity . TG slightly elevated, HbA1c wnl. Low fat, low cholesterol diet, lifestyle modifications encouraged. 9. DVT px. SCDs. Resume heparin after surgery DISPOSITION: Currently under inpatient status. Plan is discharge home when medically improved. VS, I&O, 24H, Fishbone Vital Signs/I&O Vital Signs Date Time Temp Pulse Resp B/P (MAP) Pulse Ox O2 Delivery O2 Flow Rate FiO2 10/02/19 17:24 10/02/19 10:00 2.0 I&O- Last 24 Hours up to 6 AM 10/02/19 06:00 Intake Total 1922 ml Output Total 1545 ml Balance 377 ml Laboratory Data 24H LABS Laboratory Tests 2 10/01/19 21:34: Bedside Glucose (Misc Panel) 127H 10/02/19 00:07: Bedside Glucose (Misc Panel) 150H 10/02/19 05:58: Nucleated Red Blood Cells % (auto) 0.0, Anion Gap 7L, Glomerular Filtration Rate > 60.0, Estimated Mean Plasma Glucose 131H, Hemoglobin A1c 6.2, Calcium Level 7.9L, Total Bilirubin 0.4#, Aspartate Amino Transf (AST/SGOT) 16, Alanine Aminotransferase (ALT/SGPT) 23, Alkaline Phosphatase 79, Total Protein 6.1#L, Albumin 3.1#L, Albumin/Globulin Ratio 1.03, Triglycerides Level 156H, Total Cholesterol 152, LDL Cholesterol 95, Non-HDL Cholesterol (LDL + VLDL) 126, Total HDL Cholesterol 26L, Cholesterol/HDL Ratio 5.846H 10/02/19 06:17: Bedside Glucose (Misc Panel) 145H 10/02/19 11:27: Bedside Glucose (Misc Panel) 128H CBC/BMP Laboratory Tests 10/02/19 05:58 Microbiology Microbiology 09/30/19 Urine Culture - Final, Complete Current Medications Current Medications Medications (Trade) Dose Ordered Sig/Tri Route PRN Reason Start Time Stop Time Status Last Admin Dose Admin Acetaminophen 1000 mg/IV Miscellaneous Supplies 100 ml @ 400 mls/hr Q8HP PRN IV pain 1-5 09/30/19 23:45 Amino Ac/Electrol/ Dextrose/Calcium 2,000 ml @ 75 mls/hr ONCE@1800 IV 10/02/19 18:00 10/03/19 17:59 Artificial Tears (Akwa Tears) 2 drop QIDP PRN OU DRY EYES 09/30/19 23:45 Ceftriaxone Sodium 2 gm/ Dextrose 50 ml @ 50 mls/hr Q24H IV 09/30/19 23:00 10/01/19 22:11 Ceftriaxone Sodium (Rocephin) 2 gm Q24H IM 09/30/19 23:00 09/30/19 22:27 DC Ceftriaxone Sodium (Rocephin) 2 gm Q24H IV 09/30/19 23:00 09/30/19 22:32 DC Diatrizoate Meglum/ Diatrizoate Sod (Gastrografin) 10 ml Q30M PO 09/30/19 18:00 09/30/19 18:31 DC 09/30/19 18:44 Fat Emulsion Intravenous 500 ml @ 20 mls/hr ONCE@1800 IV 10/01/19 18:00 10/02/19 17:59 DC 10/01/19 18:17 Fat Emulsion Intravenous 500 ml @ 20 mls/hr ONCE@1800 IV 10/02/19 18:00 10/03/19 17:59 Heparin Sodium (Heparin (Flush)) 200 units ASDIRECTED PRN IV SEE LABEL COMMENTS 10/01/19 16:00 Heparin Sodium (Heparin (Flush)) 200 units PICC IV 10/01/19 18:00 Heparin Sodium (Porcine) (Heparin) 5,000 units Q8H SQ 10/01/19 22:00 10/02/19 09:28 DC 10/02/19 06:27 Home Med (Med Rec Complete!) ASDIRECTED XX 09/30/19 22:30 09/30/19 22:23 DC Home Med (Med Rec Complete!) ASDIRECTED XX 10/01/19 08:45 10/01/19 08:40 DC Hydralazine HCl (Apresoline) 10 mg Q8H IV 10/01/19 21:00 10/02/19 12:26 DC Insulin Human Lispro (HumaLOG INSULIN) See Protocol Table Q6H SC 10/01/19 18:00 10/02/19 12:01 DC 10/02/19 12:09 Insulin Human Lispro (HumaLOG INSULIN) See Protocol Table Q6H SC 10/02/19 18:00 10/03/19 12:01 Lactic Acid (Lac-Hydrin 12% Lotion) 1 dose DAILY PRN TOP DRY SKIN 09/30/19 23:45 09/30/19 23:42 DC Lactic Acid (Lac-Hydrin 12% Lotion) APPLY TO AFFECTED AREA DAILY PRN TOP DRY SKIN 09/30/19 23:45 Lisinopril (Prinivil) 20 mg DAILY PO 10/01/19 09:00 10/01/19 20:34 DC 10/01/19 09:46 Metoprolol Tartrate (Lopressor) 25 mg BID PO 09/30/19 21:00 10/02/19 09:13 Morphine Sulfate (Morphine Sulfate Inj) 4 mg Q3HP PRN IV pain 5-10 09/30/19 23:45 10/02/19 00:19 Multivitamins 10 ml/Chromium/ Copper/Manganese/ Seleni/Zn 1 ml/ Amino Ac/Electrol/ Dextrose/Calcium 2,011 ml @ 75 mls/hr ONCE@1800 IV 10/01/19 18:00 10/02/19 17:59 DC 10/01/19 18:17 Nicotine (Nicoderm Cq 21mg) 1 patch DAILY TD 10/01/19 09:00 10/02/19 09:12 Pantoprazole Sodium (Protonix) 40 mg BID IV 09/30/19 21:00 10/02/19 09:12 Sodium Chloride 1,000 ml @ 50 mls/hr Q20H IV 09/30/19 22:15 10/01/19 18:38 Sodium Chloride (Saline Lock Flush) 10 ml ASDIRECTED PRN IV SEE LABEL COMMENTS 10/01/19 16:00 Sodium Chloride (Saline Lock Flush) 10 ml PICC IV 10/01/19 18:00 Allergies Coded Allergies: No Known Allergies (Unverified , 03/25/14) Delmi Hector MD October 02, 2019 19:17
[2019-10-02] MEDS ORDERED: METOPROLOL 5 MG/5 ML VIAL As Ordered ONE (20:14)
[2019-10-02] MEDS ORDERED: KETOROLAC 30 MG/ML 1ML VIAL IV PRN (20:15)
[2019-10-02] MEDS ORDERED: MORPHINE 2 MG/ML 1ML VIAL (J2270) IV PRN ×2 (20:15→20:30)
[2019-10-02] MEDS: METOPROLOL 5 MG/5 ML VIAL IV SCH ×5 (20:18→20:50)
[2019-10-02] MEDS ORDERED: LR 1,000 ML IV SCH (20:30)
[2019-10-02] MEDS ORDERED: fentaNYL 100 MCG/2 ML INJECTION (J3010) IV PRN (20:30)
[2019-10-02] MEDS ORDERED: ONDANSETRON 4MG/2ML VIAL IV PRN (20:30)
[2019-10-02] MEDS ORDERED: hydrALAZINE 20MG/ML 1ML VIAL (J0360 PER 20MG) As Ordered ONE (21:04)
[2019-10-02] MEDS: hydrALAZINE 20MG/ML 1ML VIAL (J0360 PER 20MG) IV PRN ×2 (21:08→21:15)
[2019-10-03] VITALS (10 sets, daily range): BP systolic 134–178; BP diastolic 69–88
[2019-10-03] MEDS: HumaLOG INSULIN (NovoLOG) PER UNIT SC SCH ×4 (00:44→18:00)
--- NOTE | 2019-10-03 05:38 | IPN ---
DATE: 10/02/2019 HISTORY: Patient is a 79-year-old man who was admitted on 09/30/2019 for a rectosigmoid obstruction. He had undergone a colonoscopy in January 2018 that showed a significant stricture in the sigmoid colon or rectosigmoid that could not be passed with a scope. Patient remains quite distended. He has a nasogastric tube in place. He reports no rectal output at all over the last 24 hours. Continues to be uncomfortable. VITAL SIGNS: Show that he has been afebrile over the past 24 hours. His pulse is in the 60s and 70s. Blood pressure is generally good with a normal room air oxygen saturation. INTAKE AND OUTPUT: Show that he has had 1500 in yesterday with 1100 out. He had only 320 from his nasogastric (NG) tube with 800 mL of urine. PHYSICAL EXAM: Shows a pleasant man lying quietly on the hospital bed. His heart exam shows a regular rhythm, and the lungs are clear. The abdomen is quite distended, and this is moderately firm. He has minimal bowel sounds. Palpation reveals the abdomen to be full with some very mild diffuse tenderness on palpation. There may be some faint tympany to percussion in the epigastrium. LABORATORY STUDIES: Show today a white count of 12, hemoglobin of 17, hematocrit of 49, and a platelet count of 256,000. Chemistry profile shows a sodium of 141, potassium 4.0, chloride 105, CO2 of 29, BUN of 14, creatinine 0.9, and a glucose of 116. Total protein is 6.1 with an albumin of 3.1. CT scan from 09/30/2019, I reviewed personally. His entire colon is full of air and fluid and is quite distended, particularly on the right-hand side. There is some mild generalized thickening of the bowel wall involving the colon. In the distal sigmoid, there is some thickening with loss of the lumen, which is likely just a chronic scar but could represent tumor. IMPRESSION: Patient shows persistent large bowel obstruction at the level of the sigmoid secondary to stricture. He is having no rectal output and remains quite firmly distended. PLAN: I have recommended to the patient that we take him to the operating room today for a diverting colostomy. This may be possible laparoscopically, but it could require an open incision given his degree of bowel distension. I think that the risk of waiting too long and allowing his cecum to perforate leading to an emergency exploratory laparotomy outweighs the potential benefit of trying to wait this out and see if he will decompress adequately. I counseled the patient that I would recommend proceeding with surgery today, and he is agreeable.
[2019-10-03 06:07] LABS: BASO % 0.2 % (0.0-1.0); EOS % 0.1 % (0.0-3.0); HEMATOCRIT 48.1 % (42.0-52.0); HEMOGLOBIN 16.4 g/dl (13.5-17.5); LYMPH # 1.7 10^3/uL (1.5-5.0); LYMPH % 10.6 % (24.0-44.0); MEAN CORPUSCULAR HEMOGLOBIN 32.9 pg (27.0-33.0); MEAN CORPUSCULAR HGB CONC 34.1 g/dl (32.0-36.5); MEAN CORPUSCULAR VOLUME 96.4 fl (80.0-96.0); MONO # 1.5 10^3/uL (0.0-0.8); MONO % 9.2 % (0.0-5.0); NEUTROPHILS # 12.7 10^3/uL (1.5-8.5); NEUTROPHILS % 79.5 % (36.0-66.0); PLATELET COUNT, AUTOMATED 268 10^3/uL (150-450); RED BLOOD COUNT 4.99 10^6/uL (4.30-6.10)
[2019-10-03] MEDS: SODIUM CHLORIDE 0.9% INJ 10 ML SYR IV SCH ×2 (06:16→18:26)
[2019-10-03 06:39] LABS: ALBUMIN 3.2 GM/DL (3.2-5.2); ALT/SGPT 30 U/L (12-78); BILIRUBIN,TOTAL 0.4 MG/DL (0.2-1.0); BLOOD UREA NITROGEN 17 MG/DL (7-18); CALCIUM LEVEL 8.8 MG/DL (8.8-10.2); CARBON DIOXIDE LEVEL 30 MEQ/L (21-32); CHLORIDE LEVEL 102 MEQ/L (98-107); CREATININE FOR GFR 0.78 MG/DL (0.70-1.30); GLOMERULAR FILTRATION RATE > 60.0 (>42); GLUCOSE, FASTING 108 MG/DL (70-100); POTASSIUM SERUM 4.7 MEQ/L (3.5-5.1); SODIUM LEVEL 136 MEQ/L (136-145); TOTAL PROTEIN 6.9 GM/DL (6.4-8.2)
[2019-10-03] MEDS ORDERED: NORCO, ANEXSIA 5/325MG TABLET (HYDROcodone/ACETAMINOPHEN) PO PRN (09:00)
[2019-10-03] MEDS ORDERED: IBUPROFEN 400 MG TAB PO PRN (09:00)
[2019-10-03] MEDS ORDERED: PANTOPRAZOLE 40MG VIAL (C9113 PER 1) IV SCH (09:00)
[2019-10-03] MEDS ORDERED: ACETAMINOPHEN TAB 650MG DOSE (2X325MG) PO PRN (09:00)
[2019-10-03] MEDS: PANTOPRAZOLE 40MG TAB (PROTONIX) PO SCH (09:50)
[2019-10-03] MEDS: NICOTINE 21MG/24HR 1 EA TRANSDERMAL TD SCH (09:50)
[2019-10-03] MEDS: METOPROLOL TART 25 MG TABLET PO SCH ×2 (09:51→21:58)
[2019-10-03] MEDS: ENOXAPARIN 40MG/0.4ML SYRINGE (J1650 PER 10MG) SC SCH (09:51)
[2019-10-03] MEDS: SODIUM CHLORIDE 0.9% INJ 10 ML SYR IV PRN (09:52)
[2019-10-03] MEDS: ALVIMOPAN 12 MG CAPSULE (ENTEREG) PO SCH ×2 (11:28→21:58)
[2019-10-03] MEDS ORDERED: ERTAPENEM SODIUM 1 GM in NS MINI-BAG PLUS 50 ML IV ONE (16:00)
[2019-10-03] MEDS ORDERED: MULTIVITAMIN -ADULT INJECTION 10 ML, CR/CU/SE/MN/ZN INJ 1 ML in AMINO AC/ELECTROLYTE/DE... IV SCH (18:00)
[2019-10-03] MEDS ORDERED: FAT EMULSION IV 20% 500 ML IV SCH (18:00)
--- NOTE | 2019-10-03 18:44 | IPNPDOC ---
Date Seen The patient was seen on 10/03/19. Progress Note SUBJECTIVE: Post-op day 1 for diverting colostomy. NG out and TPN started. IVFs stopped and given dose of lasix later in day due to lower than normal O2 sat. Incentive spirometer added to regimen. Abd pain controlled and stoma appears healthy, stool in bag. Denies chest pain, nausea, fevers or chills. OBJECTIVE: VITAL SIGNS: Please see below GEN: Obese / well developed/ NAD INTEGUMENT: not flushed/ not jaundice HEENT: NCAT / mucus membranes moist and pink CVS: RRR/NMRG/ radial and dorsalis pedis pulses intact /trace lower extremity edema LUNGS: lungs are clear to auscultation bilaterally on room air ABDOMEN: Obese abdomen, colostomy bag in left upper abdomen, stoma appears pink and healthy. BS in 4 quadrants, nontender to palpation NEURO: CN 2-12 are grossly intact / speech is not dysarthric PSYCH: alert and oriented to person place and time/ able to understand and follow all commands LABORATORY DATA: Please see below IMAGING: No new imaging. ASSESSMENT: 79-year-old M admitted for SBO s/p diverting colostomy placement -post-op day 1, retrocecal appendicitis. PLAN: 1. SBO s/p diverting colostomy placement -post-op day 1. TPN started Surgery today. NG tube in place with intermittent suction, little output. C/w increased IVFs, pain control. PICC line in place with, TPN to start. Will need colostomy and later surgery to close according to surgery. 2. Low O2 sat, atelectasis vs. fluid overload. + fluid balance. Stopped IVFs. Given 40 mg IV lasix and started daily. Monitor I&O's, daily wt, incentive spirometer. F/u BNP. 3. Gastritis. C/w PPI. 4. Retrocecal appendicitis. Surgery following, WBC slightly elevated but expected given recent surgery. Will discuss with their team to see if wanting to continue abx. 5. UTI. Treated. 6. Chronic CAD. Hold ASA, restart when ok by surgery. Denies chest pain. 7. Depression /Anxiety. Resume home meds. 8. Tobacco Abuse. C/w nicotine patch. 9. Hypertriglyceridemia. Monitor while on TPN. 10. DVT px. SCDs. Resume heparin when cleared by surgery DISPOSITION: Currently under inpatient status. Plan is discharge home when medically improved. VS, I&O, 24H, Fishbone Vital Signs/I&O Vital Signs Date Time Temp Pulse Resp B/P (MAP) Pulse Ox O2 Delivery O2 Flow Rate FiO2 10/03/19 18:00 98.0 102 18 155/78 (103) 91 Room Air I&O- Last 24 Hours up to 6 AM 10/03/19 06:00 Intake Total 2005 ml Output Total 3230 ml Balance -1225 ml Laboratory Data 24H LABS Laboratory Tests 2 10/03/19 00:17: Bedside Glucose (Misc Panel) 178H 10/03/19 05:19: Immature Granulocyte % (Auto) 0.4, Neutrophils (%) (Auto) 79.5H, Lymphocytes (%) (Auto) 10.6L, Monocytes (%) (Auto) 9.2H, Eosinophils (%) (Auto) 0.1, Basophils (%) (Auto) 0.2, Neutrophils # (Auto) 12.7H, Lymphocytes # (Auto) 1.7, Monocytes # (Auto) 1.5H, Eosinophils # (Auto) 0.0, Basophils # (Auto) 0.0, Nucleated Red Blood Cells % (auto) 0.0, Anion Gap 4L, Glomerular Filtration Rate > 60.0, Calcium Level 8.8, Total Bilirubin 0.4, Aspartate Amino Transf (AST/SGOT) 21, A lanine Aminotransferase (ALT/SGPT) 30, Alkaline Phosphatase 73, Total Protein 6.9, Albumin 3.2, Albumin/Globulin Ratio 0.86L 10/03/19 06:07: Bedside Glucose (Misc Panel) 145H 10/03/19 11:37: Bedside Glucose (Misc Panel) 116H 10/03/19 15:52: Methicillin-Resist S.aureus DNA PCR NOT DETECTED 10/03/19 17:36: Bedside Glucose (Misc Panel) 117H CBC/BMP Laboratory Tests 10/03/19 05:19 Microbiology Microbiology 09/30/19 Urine Culture - Final, Complete Current Medications Current Medications Medications (Trade) Dose Ordered Sig/Tri Route PRN Reason Start Time Stop Time Status Last Admin Dose Admin Acetaminophen (Tylenol Tab) 650 mg Q4HP PRN PO MILD PAIN or TEMP > 100.4 10/03/19 09:00 Acetaminophen 1000 mg/IV Miscellaneous Supplies 100 ml @ 400 mls/hr Q8HP PRN IV pain 1-5 09/30/19 23:45 10/03/19 09:06 DC Acetaminophen/ Hydrocodone Bitart ([place], [place]nexsia 5/325) 1 tab Q6HP PRN PO MODERATE/SEVERE PAIN (PS 5-10) 10/03/19 09:00 Alvimopan (Entereg) 12 mg BID PO 10/03/19 09:00 10/10/19 08:59 10/03/19 11:28 Amino Ac/Electrol/ Dextrose/Calcium 2,000 ml @ 75 mls/hr ONCE@1800 IV 10/02/19 18:00 10/03/19 17:59 DC 10/02/19 20:22 Artificial Tears (Akwa Tears) 2 drop QIDP PRN OU DRY EYES 09/30/19 23:45 Ceftriaxone Sodium 2 gm/ Dextrose 50 ml @ 50 mls/hr Q24H IV 09/30/19 23:00 10/02/19 20:21 DC 10/01/19 22:11 Ceftriaxone Sodium (Rocephin) 2 gm Q24H IM 09/30/19 23:00 09/30/19 22:27 DC Ceftriaxone Sodium (Rocephin) 2 gm Q24H IV 09/30/19 23:00 09/30/19 22:32 DC Diatrizoate Meglum/ Diatrizoate Sod (Gastrografin) 10 ml Q30M PO 09/30/19 18:00 09/30/19 18:31 DC 09/30/19 18:44 Enoxaparin Sodium (Lovenox) 40 mg DAILY SC 10/03/19 09:00 10/03/19 09:51 Fat Emulsion Intravenous 500 ml @ 20 mls/hr ONCE@1800 IV 10/01/19 18:00 10/02/19 17:59 DC 10/01/19 18:17 Fat Emulsion Intravenous 500 ml @ 20 mls/hr ONCE@1800 IV 10/02/19 18:00 10/03/19 17:59 DC 10/02/19 20:21 Fat Emulsion Intravenous 500 ml @ 20 mls/hr ONCE@1800 IV 10/03/19 18:00 10/04/19 17:59 5/8/20 18:26 Fentanyl Citrate (Sublimaze) 25 mcg Q5MP PRN IV PAIN LEVEL 5-10 10/02/19 20:30 10/02/19 21:30 DC Heparin Sodium (Heparin (Flush)) 200 units ASDIRECTED PRN IV SEE LABEL COMMENTS 10/01/19 16:00 10/03/19 09:51 Heparin Sodium (Heparin (Flush)) 200 units PICC IV 10/01/19 18:00 10/03/19 18:26 Heparin Sodium (Porcine) (Heparin) 5,000 units Q8H SQ 10/01/19 22:00 10/02/19 09:28 DC 10/02/19 06:27 Home Med (Med Rec Complete!) ASDIRECTED XX 09/30/19 22:30 09/30/19 22:23 DC Home Med (Med Rec Complete!) ASDIRECTED XX 10/01/19 08:45 10/01/19 08:40 DC Hydralazine HCl (Apresoline) 5 mg ASDIRECTED PRN IV TO KEEP SBP<180 , DBP<90 10/02/19 21:30 10/02/19 22:29 DC 10/02/19 21:15 Hydralazine HCl (Apresoline) 10 mg Q8H IV 10/01/19 21:00 10/02/19 12:26 DC Ibuprofen (Advil) 400 mg Q6HP PRN PO MILD/MODERATE PAIN (PS 1-7) 10/03/19 09:00 Insulin Human Lispro (HumaLOG INSULIN) See Protocol Table Q6H SC 10/01/19 18:00 10/02/19 12:01 DC 10/02/19 12:09 Insulin Human Lispro (HumaLOG INSULIN) See Protocol Table Q6H SC 10/02/19 18:00 10/03/19 12:01 DC 10/03/19 06:16 Insulin Human Lispro (HumaLOG INSULIN) See Protocol Table Q6H SC 10/03/19 18:00 10/04/19 12:01 Ketorolac Tromethamine (ToRADol) 15 mg Q6H PRN IV MODERATE PAIN (PS 5-7) 10/02/19 20:15 10/03/19 09:06 DC 10/03/19 06:17 Lactated Ringer's 1,000 ml @ 80 mls/hr [id number] IV 10/02/19 20:30 10/02/19 21:30 DC Lactic Acid (Lac-Hydrin 12% Lotion) 1 dose DAILY PRN TOP DRY SKIN 09/30/19 23:45 09/30/19 23:42 DC Lactic Acid (Lac-Hydrin 12% Lotion) APPLY TO AFFECTED AREA DAILY PRN TOP DRY SKIN 09/30/19 23:45 Lisinopril (Prinivil) 20 mg DAILY PO 10/01/19 09:00 10/01/19 20:34 DC 10/01/19 09:46 Metoprolol Tartrate (Lopressor) 1 mg Q5M IV 10/02/19 20:30 10/02/19 20:51 DC 10/02/19 20:48 Metoprolol Tartrate (Lopressor) 25 mg BID PO 09/30/19 21:00 10/03/19 09:51 Morphine Sulfate (Morphine Sulfate Inj) 2 mg Q2H PRN IV MODERATE/SEVERE PAIN (PS 5-10) 10/02/19 20:15 10/03/19 02:46 Morphine Sulfate (Morphine Sulfate Inj) 2 mg Q5MP PRN IV PAIN LEVEL 4-7 10/02/19 20:30 10/02/19 21:30 DC Morphine Sulfate (Morphine Sulfate Inj) 4 mg Q3HP PRN IV pain 5-10 09/30/19 23:45 10/02/19 20:21 DC 10/02/19 00:19 Multivitamins 10 ml/Chromium/ Copper/Manganese/ Seleni/Zn 1 ml/ Amino Ac/Electrol/ Dextrose/Calcium 2,011 ml @ 75 mls/hr ONCE@1800 IV 10/01/19 18:00 10/02/19 17:59 DC 10/01/19 18:17 Multivitamins 10 ml/Chromium/ Copper/Manganese/ Seleni/Zn 1 ml/ Amino Ac/Electrol/ Dextrose/Calcium 2,011 ml @ 75 mls/hr ONCE@1800 IV 10/03/19 18:00 10/04/19 17:59 10/03/19 18:26 Nicotine (Nicoderm Cq 21mg) 1 patch DAILY TD 10/01/19 09:00 10/03/19 09:50 Ondansetron HCl (ZOFRAN INJection) 4 mg Q4HP PRN IV NAUSEA OR VOMITING 10/02/19 20:30 10/02/19 21:30 DC Pantoprazole Sodium (Protonix) 40 mg BID IV 09/30/19 21:00 10/02/19 20:21 DC 10/02/19 09:12 Pantoprazole Sodium (Protonix) 40 mg Q24H IV 10/03/19 09:00 10/03/19 09:06 DC Pantoprazole Sodium (Protonix) 40 mg QAM PO 10/03/19 09:00 10/03/19 09:50 Sodium Chloride 1,000 ml @ 50 mls/hr Q20H IV 09/30/19 22:15 10/03/19 09:06 DC 10/01/19 18:38 Sodium Chloride (Saline Lock Flush) 10 ml ASDIRECTED PRN IV SEE LABEL COMMENTS 10/01/19 16:00 10/03/19 09:52 Sodium Chloride (Saline Lock Flush) 10 ml PICC IV 10/01/19 18:00 10/03/19 18:26 Allergies Coded Allergies: No Known Allergies (Unverified , 03/25/14) Delmi Hector MD October 03, 2019 18:44
[2019-10-03] MEDS ORDERED: FUROSEMIDE 40MG/4ML VIAL (J1940) IV ONE (19:00)
[2019-10-03] MEDS: PRAZOSIN 1 MG CAP PO SCH (21:57)
[2019-10-03] MEDS: traZODone 100 MG TAB PO SCH (21:57)
[2019-10-03] MEDS: VENLAFAXINE **XR** 75MG CAPSULE PO SCH (21:58)
--- NOTE | 2019-10-03 22:23 | IPN ---
DATE: 10/03/2019 HISTORY: The patient is now postop day #1 from a laparoscopic partial sigmoid colectomy and end colostomy for obstruction in the distal sigmoid. At surgery, he was noted to have at least one (dictation cut off). The surgery was uncomplicated. His ostomy has been putting out some liquid brownish stool. He denies any significant pain this morning. VITAL SIGNS: Show that he has been afebrile since surgery. His pulses in the 70s. His blood pressure has been up some into the 170s, though he was much higher in the recovery room. Intake and output show that his intake is not completely recorded, but yesterday he was recorded as having 2400 in with 3000 out. His nasogastric (NG) tube has had minimal amounts out. He had 150 mL of stool recorded this morning. PHYSICAL EXAMINATION: The patient is awake and alert. He appears quite comfortable and moves well in the bed. Heart exam shows a regular rate and rhythm. The lungs are clear. The abdomen shows some bowel sounds. He is softer than he was yesterday. There is some stool and air in his ostomy bag. His dressings are clean and dry. He does not have any thromboembolism deterrents (TEDs) or sequentials on at this time, though they have been ordered. Laboratory studies this morning show a white count of 16, hemoglobin of 16, hematocrit of 48 and platelet count of 268,000. His chemistry profile shows a sodium of 136, potassium 4.7, chloride 102, CO2 of 30, BUN of 17, creatinine 0.8 and a glucose of 108. IMPRESSION: The patient is doing very well postop day #1. He has got a good output of stool from his colostomy, and I would anticipate that he would decompress fairly readily given his distal colonic obstruction as the cause for his problem. PLAN: I removed the patient's nasogastric tube today. I will convert some of his medications including the Protonix and his pain meds to oral. I will put him on some Entereg, though he may not require this if his narcotic doses are minimal. I encouraged him to be out of bed. I will keep him only on sips and ice chips at this point, but if he decompresses nicely over the next day, then we can probably start him on some liquids. I will order a CEA for tomorrow to see if this is normal. I anticipate that his obstruction is secondary to inflammatory process not cancer but a CEA that was normal would be somewhat reassuring. Dr. Merino will be covering over this coming weekend.
[2019-10-04] MEDS: HumaLOG INSULIN (NovoLOG) PER UNIT SC SCH ×4 (00:23→18:30)
[2019-10-04 02:00] VITALS: BP 111/62
[2019-10-04] MEDS: SODIUM CHLORIDE 0.9% INJ 10 ML SYR IV SCH ×2 (05:56→18:30)
[2019-10-04 06:00] VITALS: BP 125/60
[2019-10-04 06:44] LABS: BASO # 0.1 10^3/uL (0.0-0.2); BASO % 0.5 % (0.0-1.0); EOS # 0.4 10^3/uL (0.0-0.5); EOS % 3.8 % (0.0-3.0); HEMATOCRIT 43.9 % (42.0-52.0); HEMOGLOBIN 14.6 g/dl (13.5-17.5); LYMPH % 19.7 % (24.0-44.0); MEAN CORPUSCULAR HEMOGLOBIN 32.1 pg (27.0-33.0); MEAN CORPUSCULAR HGB CONC 33.3 g/dl (32.0-36.5); MEAN CORPUSCULAR VOLUME 96.5 fl (80.0-96.0); MONO # 1.1 10^3/uL (0.0-0.8); NEUTROPHILS # 6.7 10^3/uL (1.5-8.5); NEUTROPHILS % 64.6 % (36.0-66.0); PLATELET COUNT, AUTOMATED 217 10^3/uL (150-450); RED BLOOD COUNT 4.55 10^6/uL (4.30-6.10); WHITE BLOOD COUNT 10.3 10^3/uL (4.0-10.0)
[2019-10-04] MEDS: FUROSEMIDE 20MG/2ML VIAL (J1940) IV SCH (09:06)
[2019-10-04] MEDS: ALVIMOPAN 12 MG CAPSULE (ENTEREG) PO SCH ×2 (09:06→20:22)
[2019-10-04] MEDS: PANTOPRAZOLE 40MG TAB (PROTONIX) PO SCH (09:06)
[2019-10-04] MEDS: METOPROLOL TART 25 MG TABLET PO SCH ×2 (09:07→20:22)
[2019-10-04] MEDS: lisinopriL 20 MG TAB PO SCH (09:07)
[2019-10-04] MEDS: NICOTINE 21MG/24HR 1 EA TRANSDERMAL TD SCH (09:08)
[2019-10-04] MEDS: ENOXAPARIN 40MG/0.4ML SYRINGE (J1650 PER 10MG) SC SCH (09:08)
[2019-10-04] MEDS: SODIUM CHLORIDE 0.9% INJ 10 ML SYR IV PRN (09:08)
[2019-10-04 10:00] VITALS: BP 126/69
--- NOTE | 2019-10-04 10:16 | IPNPDOC ---
Text Note Date of Service The patient was seen on 10/04/19. NOTE Patient reports feeling better, hungry. Denies any nausea or severe abdominal discomfort. VS stable afebrile, nontachycardic I/O ostomy - 500 mLs soft, stool On exam, looks comfortable Abdomen: rounded, slightly protuberant, still distended but soft. There is a wide area of ecchymosis on the lower abdomen in between the port sites and ostomy with some very faint erythema, nontender o palpation. Ostomy functioning. Colonic obstruction secondary to presumed sigmoid colon stricture from chronic diverticulitis, diverticulosis status post colonic diversion with a colostomy postop day 2 will start giving him liquids and see how he does ostomy teaching will renew tpn today possibly dc tomorrow if tolerating diet. VS,Fishbone, I+O VS, Fishbone, I+O Laboratory Tests 10/04/19 06:01 Vital Signs Date Time Temp Pulse Resp B/P (MAP) Pulse Ox O2 Delivery O2 Flow Rate FiO2 10/04/19 06:00 98.2 87 15 125/60 (81) 95 Room Air 10/03/19 18:00 I&O- Last 24 Hours up to 6 AM 10/04/19 05:59 Intake Total 1780 ml Output Total 2625 ml Balance -845 ml ADINA JOSEPH MD October 04, 2019 08:54
[2019-10-04 14:00] VITALS: BP 104/58
[2019-10-04 18:00] VITALS: BP 122/66
[2019-10-04] MEDS ORDERED: AMINO AC/ELECTROLYTE/DEX/CALC 2,000 ML IV SCH (18:00)
[2019-10-04] MEDS ORDERED: FAT EMULSION IV 20% 500 ML IV SCH (18:00)
--- NOTE | 2019-10-04 19:05 | IPNPDOC ---
Date Seen The patient was seen on 10/04/19. Progress Note SUBJECTIVE: Post-op day 2 for diverting colostomy. Tolerating TPN well, advancing to full liquids today. approx 400 mL soft stool in ostomy bag this AM. Pain controlled. Denies chest pain, nausea, fevers or chills. OBJECTIVE: VITAL SIGNS: Please see below GEN: Obese / well developed/ NAD INTEGUMENT: not flushed/ not jaundice HEENT: NCAT / mucus membranes moist and pink CVS: RRR/NMRG/ radial and dorsalis pedis pulses intact /trace lower extremity edema LUNGS: lungs are clear to auscultation bilaterally on room air ABDOMEN: Obese abdomen, colostomy bag in left upper abdomen, stoma appears pink and healthy. BS in 4 quadrants, nontender to palpation NEURO: CN 2-12 are grossly intact / speech is not dysarthric PSYCH: alert and oriented to person place and time/ able to understand and follow all commands LABORATORY DATA: Please see below IMAGING: No new imaging. ASSESSMENT: 79-year-old M admitted for SBO s/p diverting colostomy placement -post-op day 2, retrocecal appendicitis. PLAN: 1. SBO s/p diverting colostomy placement -post-op day 2. Starting feeding. C/w pain control. if does well with feeding will discuss stopping TPN. 2. Low O2 sat, atelectasis vs. fluid overload. 520 mL/24 hours. S/p 40 mg IV lasix yesterday. Monitor I&O's, daily wt, incentive spirometer. 3. Gastritis. C/w PPI. 4. Retrocecal appendicitis. WBC improved. No plan for further abx. 6. Chronic CAD. Hold ASA, restart when ok by surgery. Denies chest pain. 7. Depression /Anxiety. Resume home meds. 8. Tobacco Abuse. C/w nicotine patch. 9. Hypertriglyceridemia. Monitor while on TPN. 10. DVT px. SCDs, enoxaparin DISPOSITION: Currently under inpatient status. Plan is discharge home when medically improved. VS, I&O, 24H, Fishbone Vital Signs/I&O Vital Signs Date Time Temp Pulse Resp B/P (MAP) Pulse Ox O2 Delivery O2 Flow Rate FiO2 10/04/19 18:00 97.8 91 18 122/66 (84) 94 Room Air 10/03/19 18:00 I&O- Last 24 Hours up to 6 AM 10/04/19 05:59 Intake Total 1780 ml Output Total 2625 ml Balance -845 ml Laboratory Data 24H LABS Laboratory Tests 2 10/04/19 00:08: Bedside Glucose (Misc Panel) 152H 10/04/19 05:48: Bedside Glucose (Misc Panel) 124H 10/04/19 06:01: Immature Granulocyte % (Auto) 0.4, Neutrophils (%) (Auto) 64.6, Lymphocytes (%) (Auto) 19.7L, Monocytes (%) (Auto) 11.0H, Eosinophils (%) (Auto) 3.8H, Basophils (%) (Auto) 0.5, Neutrophils # (Auto) 6.7, Lymphocytes # (Auto) 2.0, Monocytes # (Auto) 1.1H, Eosinophils # (Auto) 0.4, Basophils # (Auto) 0.1, Nucleated Red Blood Cells % (auto) 0.0 10/04/19 12:04: Bedside Glucose (Misc Panel) 167H 10/04/19 17:46: Bedside Glucose (Misc Panel) 165H CBC/BMP Laboratory Tests 10/04/19 06:01 Microbiology Microbiology 09/30/19 Urine Culture - Final, Complete Current Medications Current Medications Medications (Trade) Dose Ordered Sig/Tri Route PRN Reason Start Time Stop Time Status Last Admin Dose Admin Acetaminophen (Tylenol Tab) 650 mg Q4HP PRN PO MILD PAIN or TEMP > 100.4 10/03/19 09:00 Acetaminophen 1000 mg/IV Miscellaneous Supplies 100 ml @ 400 mls/hr Q8HP PRN IV pain 1-5 09/30/19 23:45 10/03/19 09:06 DC Acetaminophen/ Hydrocodone Bitart ([place], Anexsia 5/325) 1 tab Q6HP PRN PO MODERATE/SEVERE PAIN (PS 5-10) 10/03/19 09:00 Alvimopan (Entereg) 12 mg BID PO 10/03/19 09:00 10/10/19 08:59 10/04/19 09:06 Amino Ac/Electrol/ Dextrose/Calcium 2,000 ml @ 65 mls/hr ONCE@1800 IV 10/04/19 18:00 10/05/19 17:59 10/04/19 18:31 Amino Ac/Electrol/ Dextrose/Calcium 2,000 ml @ 75 mls/hr ONCE@1800 IV 10/02/19 18:00 10/03/19 17:59 DC 10/02/19 20:22 Artificial Tears (Akwa Tears) 2 drop QIDP PRN OU DRY EYES 09/30/19 23:45 Ceftriaxone Sodium 2 gm/ Dextrose 50 ml @ 50 mls/hr Q24H IV 09/30/19 23:00 10/02/19 20:21 DC 10/01/19 22:11 Ceftriaxone Sodium (Rocephin) 2 gm Q24H IM 09/30/19 23:00 09/30/19 22:27 DC Ceftriaxone Sodium (Rocephin) 2 gm Q24H IV 09/30/19 23:00 09/30/19 22:32 DC Diatrizoate Meglum/ Diatrizoate Sod (Gastrografin) 10 ml Q30M PO 09/30/19 18:00 09/30/19 18:31 DC 09/30/19 18:44 Enoxaparin Sodium (Lovenox) 40 mg DAILY SC 10/03/19 09:00 10/04/19 09:08 Fat Emulsion Intravenous 500 ml @ 20 mls/hr ONCE@1800 IV 10/01/19 18:00 10/02/19 17:59 DC 10/01/19 18:17 Fat Emulsion Intravenous 500 ml @ 20 mls/hr ONCE@1800 IV 10/02/19 18:00 10/03/19 17:59 DC 10/02/19 20:21 Fat Emulsion Intravenous 500 ml @ 20 mls/hr ONCE@1800 IV 10/03/19 18:00 10/04/19 17:59 DC 10/03/19 18:26 Fat Emulsion Intravenous 500 ml @ 20 mls/hr ONCE@1800 IV 10/04/19 18:00 10/05/19 17:59 10/04/19 18:31 Fentanyl Citrate (Sublimaze) 25 mcg Q5MP PRN IV PAIN LEVEL 5-10 10/02/19 20:30 10/02/19 21:30 DC Furosemide (LASIX injection) 20 mg DAILY IV 10/04/19 09:00 10/04/19 09:06 Heparin Sodium (Heparin (Flush)) 200 units ASDIRECTED PRN IV SEE LABEL COMMENTS 10/01/19 16:00 10/04/19 09:08 Heparin Sodium (Heparin (Flush)) 200 units PICC IV 10/01/19 18:00 10/04/19 18:30 Heparin Sodium (Porcine) (Heparin) 5,000 units Q8H SQ 10/01/19 22:00 10/02/19 09:28 DC 10/02/19 06:27 Home Med (Med Rec Complete!) ASDIRECTED XX 09/30/19 22:30 09/30/19 22:23 DC Home Med (Med Rec Complete!) ASDIRECTED XX 10/01/19 08:45 10/01/19 08:40 DC Hydralazine HCl (Apresoline) 5 mg ASDIRECTED PRN IV TO KEEP SBP<180 , DBP<90 10/02/19 21:30 10/02/19 22:29 DC 10/02/19 21:15 Hydralazine HCl (Apresoline) 10 mg Q8H IV 10/01/19 21:00 10/02/19 12:26 DC Ibuprofen (Advil) 400 mg Q6HP PRN PO MILD/MODERATE PAIN (PS 1-7) 10/03/19 09:00 Insulin Human Lispro (HumaLOG INSULIN) See Protocol Table Q6H SC 10/01/19 18:00 10/02/19 12:01 DC 10/02/19 12:09 Insulin Human Lispro (HumaLOG INSULIN) See Protocol Table Q6H SC 10/02/19 18:00 10/03/19 12:01 DC 10/03/19 06:16 Insulin Human Lispro (HumaLOG INSULIN) See Protocol Table Q6H SC 10/03/19 18:00 10/04/19 12:01 DC 10/04/19 12:56 Insulin Human Lispro (HumaLOG INSULIN) See Protocol Table Q6H SC 10/04/19 18:00 10/05/19 12:01 10/04/19 18:30 Ketorolac Tromethamine (ToRADol) 15 mg Q6H PRN IV MODERATE PAIN (PS 5-7) 10/02/19 20:15 10/03/19 09:06 DC 10/03/19 06:17 Lactated Ringer's 1,000 ml @ 80 mls/hr [id number] IV 10/02/19 20:30 10/02/19 21:30 DC Lactic Acid (Lac-Hydrin 12% Lotion) 1 dose DAILY PRN TOP DRY SKIN 09/30/19 23:45 09/30/19 23:42 DC Lactic Acid (Lac-Hydrin 12% Lotion) APPLY TO AFFECTED AREA DAILY PRN TOP DRY SKIN 09/30/19 23:45 Lisinopril (Prinivil) 20 mg DAILY PO 10/01/19 09:00 10/01/19 20:34 DC 10/01/19 09:46 Lisinopril (Prinivil) 20 mg DAILY PO 10/04/19 09:00 10/04/19 09:07 Metoprolol Tartrate (Lopressor) 1 mg Q5M IV 10/02/19 20:30 10/02/19 20:51 DC 10/02/19 20:48 Metoprolol Tartrate (Lopressor) 25 mg BID PO 09/30/19 21:00 10/04/19 09:07 Morphine Sulfate (Morphine Sulfate Inj) 2 mg Q2H PRN IV MODERATE/SEVERE PAIN (PS 5-10) 10/02/19 20:15 10/03/19 02:46 Morphine Sulfate (Morphine Sulfate Inj) 2 mg Q5MP PRN IV PAIN LEVEL 4-7 10/02/19 20:30 10/02/19 21:30 DC Morphine Sulfate (Morphine Sulfate Inj) 4 mg Q3HP PRN IV pain 5-10 09/30/19 23:45 10/02/19 20:21 DC 10/02/19 00:19 Multivitamins 10 ml/Chromium/ Copper/Manganese/ Seleni/Zn 1 ml/ Amino Ac/Electrol/ Dextrose/Calcium 2,011 ml @ 75 mls/hr ONCE@1800 IV 10/01/19 18:00 10/02/19 17:59 DC 10/01/19 18:17 Multivitamins 10 ml/Chromium/ Copper/Manganese/ Seleni/Zn 1 ml/ Amino Ac/Electrol/ Dextrose/Calcium 2,011 ml @ 75 mls/hr ONCE@1800 IV 10/03/19 18:00 10/04/19 17:59 DC 10/03/19 18:26 Nicotine (Nicoderm Cq 21mg) 1 patch DAILY TD 10/01/19 09:00 10/04/19 09:08 Ondansetron HCl (ZOFRAN INJection) 4 mg Q4HP PRN IV NAUSEA OR VOMITING 10/02/19 20:30 10/02/19 21:30 DC Pantoprazole Sodium (Protonix) 40 mg BID IV 09/30/19 21:00 10/02/19 20:21 DC 10/02/19 09:12 Pantoprazole Sodium (Protonix) 40 mg Q24H IV 10/03/19 09:00 10/03/19 09:06 DC Pantoprazole Sodium (Protonix) 40 mg QAM PO 10/03/19 09:00 10/04/19 09:06 Prazosin HCl (Minipress) 1 mg QHS PO 10/03/19 21:00 10/03/19 21:57 Sodium Chloride 1,000 ml @ 50 mls/hr Q20H IV 09/30/19 22:15 10/03/19 09:06 DC 10/01/19 18:38 Sodium Chloride (Saline Lock Flush) 10 ml ASDIRECTED PRN IV SEE LABEL COMMENTS 10/01/19 16:00 10/04/19 09:08 Sodium Chloride (Saline Lock Flush) 10 ml PICC IV 10/01/19 18:00 10/04/19 18:30 Trazodone HCl (Desyrel) 300 mg QHS PO 10/03/19 21:00 10/03/19 21:57 Venlafaxine HCl (Effexor Xr) 225 mg QHS PO 10/03/19 21:00 10/03/19 21:58 Allergies Coded Allergies: No Known Allergies (Unverified , 03/25/14) Delmi Hector MD October 04, 2019 19:05
[2019-10-04 19:15] LABS: ALBUMIN 2.9 GM/DL (3.2-5.2); ALT/SGPT 30 U/L (12-78); BILIRUBIN,TOTAL 0.7 MG/DL (0.2-1.0); BLOOD UREA NITROGEN 22 MG/DL (7-18); CALCIUM LEVEL 8.6 MG/DL (8.8-10.2); CARBON DIOXIDE LEVEL 27 MEQ/L (21-32); CHLORIDE LEVEL 102 MEQ/L (98-107); CREATININE FOR GFR 0.84 MG/DL (0.70-1.30); GLOMERULAR FILTRATION RATE > 60.0 (>42); GLUCOSE, FASTING 122 MG/DL (70-100); NT-PRO BNP 46 PG/ML (<450); POTASSIUM SERUM 3.5 MEQ/L (3.5-5.1); SODIUM LEVEL 136 MEQ/L (136-145)
[2019-10-04] MEDS: VENLAFAXINE **XR** 75MG CAPSULE PO SCH (20:21)
[2019-10-04] MEDS: PRAZOSIN 1 MG CAP PO SCH (20:21)
[2019-10-04] MEDS: traZODone 100 MG TAB PO SCH (20:21)
[2019-10-04 22:00] VITALS: BP 121/65
[2019-10-05] MEDS: HumaLOG INSULIN (NovoLOG) PER UNIT SC SCH ×3 (00:33→12:00)
[2019-10-05 02:00] VITALS: BP 103/57
[2019-10-05 06:00] VITALS: BP 112/59
[2019-10-05] MEDS: SODIUM CHLORIDE 0.9% INJ 10 ML SYR IV SCH ×2 (06:03→17:25)
[2019-10-05 06:17] LABS: BASO # 0.1 10^3/uL (0.0-0.2); BASO % 1.1 % (0.0-1.0); EOS # 0.4 10^3/uL (0.0-0.5); EOS % 4.8 % (0.0-3.0); HEMATOCRIT 44.3 % (42.0-52.0); HEMOGLOBIN 14.9 g/dl (13.5-17.5); LYMPH # 2.3 10^3/uL (1.5-5.0); LYMPH % 24.5 % (24.0-44.0); MEAN CORPUSCULAR HGB CONC 33.6 g/dl (32.0-36.5); MEAN CORPUSCULAR VOLUME 95.3 fl (80.0-96.0); MONO # 1.1 10^3/uL (0.0-0.8); MONO % 12.3 % (0.0-5.0); NEUTROPHILS # 5.2 10^3/uL (1.5-8.5); NEUTROPHILS % 56.6 % (36.0-66.0); PLATELET COUNT, AUTOMATED 215 10^3/uL (150-450); RED BLOOD COUNT 4.65 10^6/uL (4.30-6.10); WHITE BLOOD COUNT 9.2 10^3/uL (4.0-10.0)
[2019-10-05 06:49] LABS: ALBUMIN 2.7 GM/DL (3.2-5.2); ALT/SGPT 64 U/L (12-78); BILIRUBIN,TOTAL 0.4 MG/DL (0.2-1.0); BLOOD UREA NITROGEN 26 MG/DL (7-18); CALCIUM LEVEL 8.4 MG/DL (8.8-10.2); CARBON DIOXIDE LEVEL 28 MEQ/L (21-32); CHLORIDE LEVEL 105 MEQ/L (98-107); CREATININE FOR GFR 0.96 MG/DL (0.70-1.30); GLOMERULAR FILTRATION RATE > 60.0 (>42); GLUCOSE, FASTING 129 MG/DL (70-100); POTASSIUM SERUM 3.5 MEQ/L (3.5-5.1); SODIUM LEVEL 139 MEQ/L (136-145); TOTAL PROTEIN 6.3 GM/DL (6.4-8.2)
[2019-10-05] MEDS: ALVIMOPAN 12 MG CAPSULE (ENTEREG) PO SCH ×2 (08:33→20:18)
[2019-10-05] MEDS: FUROSEMIDE 20MG/2ML VIAL (J1940) IV SCH (08:33)
[2019-10-05] MEDS: NICOTINE 21MG/24HR 1 EA TRANSDERMAL TD SCH (08:33)
[2019-10-05] MEDS: PANTOPRAZOLE 40MG TAB (PROTONIX) PO SCH (08:33)
[2019-10-05] MEDS: ENOXAPARIN 40MG/0.4ML SYRINGE (J1650 PER 10MG) SC SCH (08:34)
[2019-10-05] MEDS: SODIUM CHLORIDE 0.9% INJ 10 ML SYR IV PRN (08:34)
[2019-10-05] MEDS: lisinopriL 20 MG TAB PO SCH (08:36)
[2019-10-05] MEDS: METOPROLOL TART 25 MG TABLET PO SCH ×2 (08:37→20:18)
[2019-10-05 10:00] VITALS: BP 116/72
--- NOTE | 2019-10-05 11:37 | IPNPDOC ---
Text Note Date of Service The patient was seen on 10/05/19. NOTE Patient reports feeling better, hungry. Denies any nausea or severe abdominal discomfort. He tolerated full liquids yesterday. He denies any ongoing abdominal discomfort. VS stable afebrile, nontachycardic I/O ostomy - 500 mLs soft, stool On exam, looks comfortable Abdomen: rounded, slightly protuberant, minimally distended.. There is area of ecchymosis on the lower abdomen in between the port sites and ostomy with some very faint erythema (mildly improved from yesterday), nontender o palpation. Ostomy functioning. Colonic obstruction secondary to presumed sigmoid colon stricture from chronic diverticulitis, diverticulosis status post colonic diversion with a colostomy postop day 3 advance to soft diet ostomy teaching VS,Daja, I+O VSDaja I+O Laboratory Tests 10/05/19 05:49 Vital Signs Date Time Temp Pulse Resp B/P (MAP) Pulse Ox O2 Delivery O2 Flow Rate FiO2 10/05/19 10:00 97.6 90 19 116/72 (87) 94 Room Air 10/03/19 18:00 I&O- Last 24 Hours up to 6 AM 10/05/19 05:59 Intake Total 2580 ml Output Total 2220 ml Balance 360 ml ADINA JOSEPH MD October 05, 2019 11:37
[2019-10-05 14:00] VITALS: BP 120/77
--- NOTE | 2019-10-05 16:24 | IPNPDOC ---
Date Seen The patient was seen on 10/05/19. Progress Note SUBJECTIVE: Post-op day 3 for colonic diversion with a colostomy placement. Tolerated full liquid diet, advancing to soft diet. Still on TPN. Pain controlled. Denies chest pain, nausea, fevers or chills. OBJECTIVE: VITAL SIGNS: Please see below GEN: Obese / well developed/ NAD INTEGUMENT: not flushed/ not jaundice HEENT: NCAT / mucus membranes moist and pink CVS: RRR/NMRG/ radial and dorsalis pedis pulses intact /trace lower extremity edema LUNGS: lungs are clear to auscultation bilaterally on room air ABDOMEN: Obese abdomen, colostomy bag in left upper abdomen, stoma appears pink and healthy. BS in 4 quadrants, nontender to palpation NEURO: CN 2-12 are grossly intact / speech is not dysarthric PSYCH: alert and oriented to person place and time/ able to understand and follow all commands LABORATORY DATA: Please see below IMAGING: No new imaging. ASSESSMENT: 79-year-old M admitted for SBO s/p diverting colostomy placement, Post-op day 3. PLAN: 1. SBO 2/2 to presumed sigmoid colon stricture from chronic diverticulitis, diverticulosis s/p colonic diversion with colostomy placement. Post-op day 3. Advancing to soft diet today, c/w TPN, pain control. Ostomy teaching. Surgery following closely. 2. Atelectasis vs. fluid overload- resolved. -215 mL/24 hours. Monitor I&O's, daily wt, incentive spirometer. 3. Gastritis. C/w PPI. 4. Retrocecal appendicitis. WBC improved. No plan for further abx. 6. Chronic CAD. Restarting ASA. Denies chest pain. 7. Depression /Anxiety. C/w home meds. 8. Tobacco Abuse. C/w nicotine patch. 9. Hypertriglyceridemia. Monitor while on TPN. 10. DVT px. SCDs, enoxaparin DISPOSITION: Currently under inpatient status. Plan is discharge home when medically improved. VS, I&O, 24H, Fishbone Vital Signs/I&O Vital Signs Date Time Temp Pulse Resp B/P (MAP) Pulse Ox O2 Delivery O2 Flow Rate FiO2 10/05/19 14:00 97.9 87 17 120/77 (91) 95 Room Air 10/03/19 18:00 I&O- Last 24 Hours up to 6 AM 10/05/19 06:00 Intake Total 2600 ml Output Total 3045 ml Balance -445 ml Laboratory Data 24H LABS Laboratory Tests 2 10/04/19 17:46: Bedside Glucose (Misc Panel) 165H 10/05/19 00:20: Bedside Glucose (Misc Panel) 135H 10/05/19 05:49: Immature Granulocyte % (Auto) 0.7, Neutrophils (%) (Auto) 56.6, Lymphocytes (%) (Auto) 24.5, Monocytes (%) (Auto) 12.3H, Eosinophils (%) (Auto) 4.8H, Basophils (%) (Auto) 1.1H, Neutrophils # (Auto) 5.2, Lymphocytes # (Auto) 2.3, Monocytes # (Auto) 1.1H, Eosinophils # (Auto) 0.4, Basophils # (Auto) 0.1, Nucleated Red Blood Cells % (auto) 0.0, Anion Gap 6L, Glomerular Filtration Rate > 60.0, Calcium Level 8.4L, Total Bilirubin 0.4, Aspartate Amino Transf (AST/SGOT) 48H, Alanine Aminotransferase (ALT/SGPT) 64, Alkaline Phosphatase 76, Total Protein 6.3L, Albumin 2.7L, Albumin/Globulin Ratio 0.75L 10/05/19 05:56: Bedside Glucose (Misc Panel) 139H 10/05/19 11:22: Bedside Glucose (Misc Panel) 134H CBC/BMP Laboratory Tests 10/05/19 05:49 Microbiology Microbiology 09/30/19 Urine Culture - Final, Complete Current Medications Current Medications Medications (Trade) Dose Ordered Sig/Tri Route PRN Reason Start Time Stop Time Status Last Admin Dose Admin Acetaminophen (Tylenol Tab) 650 mg Q4HP PRN PO MILD PAIN or TEMP > 100.4 10/03/19 09:00 Acetaminophen 1000 mg/IV Miscellaneous Supplies 100 ml @ 400 mls/hr Q8HP PRN IV pain 1-5 09/30/19 23:45 10/03/19 09:06 DC Acetaminophen/ Hydrocodone Bitart ([place], Anexsia 5/325) 1 tab Q6HP PRN PO MODERATE/SEVERE PAIN (PS 5-10) 10/03/19 09:00 Alvimopan (Entereg) 12 mg BID PO 10/03/19 09:00 10/10/19 08:59 10/05/19 08:33 Amino Ac/Electrol/ Dextrose/Calcium 2,000 ml @ 65 mls/hr ONCE@1800 IV 10/04/19 18:00 10/05/19 17:59 10/04/19 18:31 Amino Ac/Electrol/ Dextrose/Calcium 2,000 ml @ 75 mls/hr ONCE@1800 IV 10/02/19 18:00 10/03/19 17:59 DC 10/02/19 20:22 Artificial Tears (Akwa Tears) 2 drop QIDP PRN OU DRY EYES 09/30/19 23:45 Ceftriaxone Sodium 2 gm/ Dextrose 50 ml @ 50 mls/hr Q24H IV 09/30/19 23:00 10/02/19 20:21 DC 10/01/19 22:11 Ceftriaxone Sodium (Rocephin) 2 gm Q24H IM 09/30/19 23:00 09/30/19 22:27 DC Ceftriaxone Sodium (Rocephin) 2 gm Q24H IV 09/30/19 23:00 09/30/19 22:32 DC Diatrizoate Meglum/ Diatrizoate Sod (Gastrografin) 10 ml Q30M PO 09/30/19 18:00 09/30/19 18:31 DC 09/30/19 18:44 Enoxaparin Sodium (Lovenox) 40 mg DAILY SC 10/03/19 09:00 10/05/19 08:34 Fat Emulsion Intravenous 500 ml @ 20 mls/hr ONCE@1800 IV 10/01/19 18:00 10/02/19 17:59 DC 10/01/19 18:17 Fat Emulsion Intravenous 500 ml @ 20 mls/hr ONCE@1800 IV 10/02/19 18:00 10/03/19 17:59 DC 10/02/19 20:21 Fat Emulsion Intravenous 500 ml @ 20 mls/hr ONCE@1800 IV 10/03/19 18:00 10/04/19 17:59 DC 10/03/19 18:26 Fat Emulsion Intravenous 500 ml @ 20 mls/hr ONCE@1800 IV 10/04/19 18:00 10/05/19 17:59 10/04/19 18:31 Fentanyl Citrate (Sublimaze) 25 mcg Q5MP PRN IV PAIN LEVEL 5-10 5/7/20 20:30 10/02/19 21:30 DC Furosemide (LASIX injection) 20 mg DAILY IV 10/04/19 09:00 10/05/19 08:33 Heparin Sodium (Heparin (Flush)) 200 units ASDIRECTED PRN IV SEE LABEL COMMENTS 10/01/19 16:00 10/05/19 08:34 Heparin Sodium (Heparin (Flush)) 200 units PICC IV 10/01/19 18:00 10/05/19 06:03 Heparin Sodium (Porcine) (Heparin) 5,000 units Q8H SQ 10/01/19 22:00 10/02/19 09:28 DC 10/02/19 06:27 Home Med (Med Rec Complete!) ASDIRECTED XX 09/30/19 22:30 09/30/19 22:23 DC Home Med (Med Rec Complete!) ASDIRECTED XX 10/01/19 08:45 10/01/19 08:40 DC Hydralazine HCl (Apresoline) 5 mg ASDIRECTED PRN IV TO KEEP SBP<180 , DBP<90 10/02/19 21:30 10/02/19 22:29 DC 10/02/19 21:15 Hydralazine HCl (Apresoline) 10 mg Q8H IV 10/01/19 21:00 10/02/19 12:26 DC Ibuprofen (Advil) 400 mg Q6HP PRN PO MILD/MODERATE PAIN (PS 1-7) 10/03/19 09:00 Insulin Human Lispro (HumaLOG INSULIN) See Protocol Table Q6H SC 10/01/19 18:00 10/02/19 12:01 DC 10/02/19 12:09 Insulin Human Lispro (HumaLOG INSULIN) See Protocol Table Q6H SC 10/02/19 18:00 10/03/19 12:01 DC 10/03/19 06:16 Insulin Human Lispro (HumaLOG INSULIN) See Protocol Table Q6H SC 10/03/19 18:00 10/04/19 12:01 DC 10/04/19 12:56 Insulin Human Lispro (HumaLOG INSULIN) See Protocol Table Q6H SC 10/04/19 18:00 10/05/19 12:01 DC 10/05/19 06:04 Ketorolac Tromethamine (ToRADol) 15 mg Q6H PRN IV MODERATE PAIN (PS 5-7) 10/02/19 20:15 10/03/19 09:06 DC 10/03/19 06:17 Lactated Ringer's 1,000 ml @ 80 mls/hr [id number] IV 10/02/19 20:30 10/02/19 21:30 DC Lactic Acid (Lac-Hydrin 12% Lotion) 1 dose DAILY PRN TOP DRY SKIN 09/30/19 23:45 09/30/19 23:42 DC Lactic Acid (Lac-Hydrin 12% Lotion) APPLY TO AFFECTED AREA DAILY PRN TOP DRY SKIN 09/30/19 23:45 Lisinopril (Prinivil) 20 mg DAILY PO 10/01/19 09:00 10/01/19 20:34 DC 10/01/19 09:46 Lisinopril (Prinivil) 20 mg DAILY PO 10/04/19 09:00 10/05/19 08:36 Metoprolol Tartrate (Lopressor) 1 mg Q5M IV 10/02/19 20:30 10/02/19 20:51 DC 10/02/19 20:48 Metoprolol Tartrate (Lopressor) 25 mg BID PO 09/30/19 21:00 10/05/19 08:37 Morphine Sulfate (Morphine Sulfate Inj) 2 mg Q2H PRN IV MODERATE/SEVERE PAIN (PS 5-10) 10/02/19 20:15 10/03/19 02:46 Morphine Sulfate (Morphine Sulfate Inj) 2 mg Q5MP PRN IV PAIN LEVEL 4-7 10/02/19 20:30 10/02/19 21:30 DC Morphine Sulfate (Morphine Sulfate Inj) 4 mg Q3HP PRN IV pain 5-10 09/30/19 23:45 10/02/19 20:21 DC 10/02/19 00:19 Multivitamins 10 ml/Chromium/ Copper/Manganese/ Seleni/Zn 1 ml/ Amino Ac/Electrol/ Dextrose/Calcium 2,011 ml @ 75 mls/hr ONCE@1800 IV 10/01/19 18:00 10/02/19 17:59 DC 10/01/19 18:17 Multivitamins 10 ml/Chromium/ Copper/Manganese/ Seleni/Zn 1 ml/ Amino Ac/Electrol/ Dextrose/Calcium 2,011 ml @ 75 mls/hr ONCE@1800 IV 10/03/19 18:00 10/04/19 17:59 DC 10/03/19 18:26 Nicotine (Nicoderm Cq 21mg) 1 patch DAILY TD 10/01/19 09:00 10/05/19 08:33 Ondansetron HCl (ZOFRAN INJection) 4 mg Q4HP PRN IV NAUSEA OR VOMITING 10/02/19 20:30 10/02/19 21:30 DC Pantoprazole Sodium (Protonix) 40 mg BID IV 09/30/19 21:00 10/02/19 20:21 DC 10/02/19 09:12 Pantoprazole Sodium (Protonix) 40 mg Q24H IV 10/03/19 09:00 10/03/19 09:06 DC Pantoprazole Sodium (Protonix) 40 mg QAM PO 10/03/19 09:00 10/05/19 08:33 Prazosin HCl (Minipress) 1 mg QHS PO 10/03/19 21:00 10/04/19 20:21 Sodium Chloride 1,000 ml @ 50 mls/hr Q20H IV 09/30/19 22:15 10/03/19 09:06 DC 10/01/19 18:38 Sodium Chloride (Saline Lock Flush) 10 ml ASDIRECTED PRN IV SEE LABEL COMMENTS 10/01/19 16:00 10/05/19 08:34 Sodium Chloride (Saline Lock Flush) 10 ml PICC IV 10/01/19 18:00 10/05/19 06:03 Trazodone HCl (Desyrel) 300 mg QHS PO 10/03/19 21:00 10/04/19 20:21 Venlafaxine HCl (Effexor Xr) 225 mg QHS PO 10/03/19 21:00 10/04/19 20:21 Allergies Coded Allergies: No Known Allergies (Unverified , 03/25/14) Delmi Hectro MD October 05, 2019 16:24
[2019-10-05] MEDS: ASPIRIN 81 MG CHEW TABLET PO SCH (17:25)
[2019-10-05 18:00] VITALS: BP 122/66
[2019-10-05] MEDS: traZODone 100 MG TAB PO SCH (20:18)
[2019-10-05] MEDS: PRAZOSIN 1 MG CAP PO SCH (20:18)
[2019-10-05] MEDS: VENLAFAXINE **XR** 75MG CAPSULE PO SCH (20:19)
[2019-10-05 22:00] VITALS: BP 129/66
[2019-10-06 02:00] VITALS: BP 131/70
[2019-10-06 06:00] VITALS: BP 125/66
[2019-10-06] MEDS: SODIUM CHLORIDE 0.9% INJ 10 ML SYR IV SCH ×2 (06:26→18:34)
[2019-10-06] MEDS: SODIUM CHLORIDE 0.9% INJ 10 ML SYR IV PRN ×2 (06:27→09:17)
[2019-10-06 06:44] LABS: BASO # 0.1 10^3/uL (0.0-0.2); BASO % 1.2 % (0.0-1.0); EOS # 0.5 10^3/uL (0.0-0.5); EOS % 5.5 % (0.0-3.0); HEMATOCRIT 46.5 % (42.0-52.0); HEMOGLOBIN 15.5 g/dl (13.5-17.5); LYMPH # 2.3 10^3/uL (1.5-5.0); MEAN CORPUSCULAR HEMOGLOBIN 32.6 pg (27.0-33.0); MEAN CORPUSCULAR HGB CONC 33.3 g/dl (32.0-36.5); MEAN CORPUSCULAR VOLUME 97.9 fl (80.0-96.0); MONO % 11.4 % (0.0-5.0); NEUTROPHILS # 5.1 10^3/uL (1.5-8.5); NEUTROPHILS % 55.9 % (36.0-66.0); PLATELET COUNT, AUTOMATED 226 10^3/uL (150-450); RED BLOOD COUNT 4.75 10^6/uL (4.30-6.10); WHITE BLOOD COUNT 9.1 10^3/uL (4.0-10.0)
[2019-10-06 07:10] LABS: ALBUMIN 2.8 GM/DL (3.2-5.2); ALT/SGPT 67 U/L (12-78); BILIRUBIN,TOTAL 0.5 MG/DL (0.2-1.0); BLOOD UREA NITROGEN 29 MG/DL (7-18); CALCIUM LEVEL 8.5 MG/DL (8.8-10.2); CARBON DIOXIDE LEVEL 26 MEQ/L (21-32); CHLORIDE LEVEL 106 MEQ/L (98-107); CREATININE FOR GFR 1.05 MG/DL (0.70-1.30); GLOMERULAR FILTRATION RATE > 60.0 (>42); GLUCOSE, FASTING 92 MG/DL (70-100); POTASSIUM SERUM 3.8 MEQ/L (3.5-5.1); SODIUM LEVEL 139 MEQ/L (136-145); TOTAL PROTEIN 6.4 GM/DL (6.4-8.2)
[2019-10-06] MEDS: ASPIRIN 81 MG CHEW TABLET PO SCH (09:14)
[2019-10-06] MEDS: NICOTINE 21MG/24HR 1 EA TRANSDERMAL TD SCH (09:15)
[2019-10-06] MEDS: FUROSEMIDE 20MG/2ML VIAL (J1940) IV SCH (09:16)
[2019-10-06] MEDS: ENOXAPARIN 40MG/0.4ML SYRINGE (J1650 PER 10MG) SC SCH (09:16)
[2019-10-06] MEDS: PANTOPRAZOLE 40MG TAB (PROTONIX) PO SCH (09:16)
[2019-10-06] MEDS: lisinopriL 20 MG TAB PO SCH (09:20)
[2019-10-06] MEDS: METOPROLOL TART 25 MG TABLET PO SCH ×2 (09:20→20:24)
[2019-10-06 10:00] VITALS: BP_SYST 130; BP_SYST 167; BP_DIAS 73; BP_DIAS 79
[2019-10-06] MEDS ORDERED: ANALGESIC BALM CRM 120 GM TOP PRN (11:00)
[2019-10-06 14:00] VITALS: BP 125/71
--- NOTE | 2019-10-06 16:02 | RO ---
DATE OF PROCEDURE: 10/02/2019 PREOPERATIVE DIAGNOSIS: Sigmoid colon obstruction. POSTOPERATIVE DIAGNOSIS: Sigmoid colon obstruction with serosal tear of cecum. PROCEDURE PERFORMED: Laparoscopy with partial sigmoid resection and end descending colostomy. SURGEON: Dr. Becerra [employer]: ANESTHESIA: General. INDICATIONS FOR THE PROCEDURE: The patient is a 79-year-old man who presented to the emergency department on 09/30/2019 with a colonic obstruction at the level of the sigmoid colon. He was treated with a nasogastric tube and started on intravenous nutrition. He has shown no improvement and has had no flatus or bowel movement in the last 24 hours. He remains firmly distended. He is now for laparoscopy and if necessary laparotomy with creation of a colostomy. OPERATIVE PROCEDURE: The patient was brought to the operating room and placed on the table in a supine position. He was placed under general endotracheal anesthesia. A Cerda catheter was inserted. A nasogastric tube was already in place. The patient's abdomen was prepped and draped in a sterile fashion. 0.25% Marcaine was infiltrated at trocar sites as necessary. A short infraumbilical midline incision was made and carried down to the peritoneum. The peritoneum was opened and a Jarrell cannula was placed. The abdomen was insufflated with carbon dioxide gas. Some serosanguineous fluid was released on opening the peritoneum. The patient was tilted to a slight Trendelenburg position. The camera was inserted. Initial examination showed multiple dilated loops of small and large bowel filling the abdomen. There was a small amount of serosanguineous fluid identified, particularly down in the pelvis but also in the paracolic gutters. This was suctioned from the abdomen. Inspection of the cecum showed at least one small serosal tear in the anteromedial wall of the cecum. The lateral aspect of the cecum was not seen due to the limited few which was hampered by the marked distension of the bowel. Attention was then turned to the pelvis and the sigmoid colon. A second 5 mm port was placed in the right lower quadrant slightly below the level of the umbilicus. A third 5 mm port was placed low in the right lower quadrant. This port was subsequently changed to a second 12 mm port. Graspers were inserted. The sigmoid colon was identified. At about the level of the pelvic brim it was clear that the sigmoid colon was fairly densely adherent to the lateral pelvic sidewall. The sigmoid colon was quite full. Using a Harmonic scalpel, the fibrofatty tissues on the medial and lateral aspects of the sigmoid colon were opened to try to identify a site for division of bowel. Some of the lateral attachments of the distal descending colon and sigmoid were divided using the Harmonic. An opening was created through the mesocolon. The sigmoid colon was divided with an Mcnair stapler with green loads. Once the bowel was completely divided, the mesocolon was completely divided and then dissection proceeded proximally along the descending colon. Initially the lateral attachments were divided and the colon was mobilized superiorly. In order to mobilize the colon adequately to come through the abdominal wall it was necessary to divide the inferior mesenteric artery. Unfortunately, when this was done, it was clear that the distal 10 cm or so of the freed colon became quite dusky in coloration. The dissection was therefore carried more proximally toward the mid upper descending colon. A colostomy site was selected in the left upper quadrant several centimeters above the level of the umbilicus. A small disk of skin was excised and the subcutaneous fat was opened. The rectus sheath was opened anteriorly and posteriorly with a longitudinal incision. The end of the colon was delivered through the abdominal wall. There was clearly a dusky area at the distal end of the colon but a fairly sharp change in coloration was noted with nice pink bowel extending beyond the opening in the abdominal wall. A final look inside the abdomen was made. There was no sign of any significant bleeding. The abdomen was then deflated. The dilated bowel did not offer a good opportunity for closure of the right lower quadrant 12 mm port site using the Matias-Dilia, so this was to be closed from the outside. The abdomen was deflated and the trocars were removed. The fascia in the right lower quadrant 12 mm port and along the midline was closed with interrupted simple sutures of #0 Vicryl. The skin incisions were closed with buried #4-0 Vicryl. The closed incisions were covered with sterile towels. I then proceeded to mature the ostomy. The poorly vascularized distal portion of the colon was excised by transecting the colon using the Harmonic. Some fibrofatty tags that might interfere with maturation of the stoma were excised also with the Harmonic. The remaining colon was clearly viable. The stomal was everted with four corner sutures of #3-0 Vicryl. Additional multiple sutures of chromic were placed to complete the maturation. An ostomy appliance was placed. The small skin incisions were dressed with Steri-Strips and light dressings. The patient tolerated the procedure well without apparent complication. His Cerda catheter was removed. He was awakened in the operating room, extubated and moved to the recovery room in stable condition.
--- NOTE | 2019-10-06 17:00 | IPNPDOC ---
Date Seen The patient was seen on 10/06/19. Progress Note SUBJECTIVE: POD 4 for colonic diversion with a colostomy placement. Tolerated soft diet well, TPN stopped. Pain controlled. F/u on surgical recs. Denies chest pain, nausea, fevers or chills. OBJECTIVE: VITAL SIGNS: Please see below GEN: Obese / well developed/ NAD INTEGUMENT: not flushed/ not jaundice HEENT: NCAT / mucus membranes moist and pink CVS: RRR/NMRG/ radial and dorsalis pedis pulses intact /trace lower extremity edema LUNGS: lungs are clear to auscultation bilaterally on room air ABDOMEN: Obese abdomen, colostomy bag in left upper abdomen, stoma appears pink and healthy. BS in 4 quadrants, nontender to palpation NEURO: CN 2-12 are grossly intact / speech is not dysarthric MUSCULOSKELETAL: PICC in place in RUE PSYCH: alert and oriented to person place and time/ able to understand and follow all commands LABORATORY DATA: Please see below IMAGING: No new imaging. ASSESSMENT: 79-year-old M admitted for SBO s/p diverting colostomy placement, POD 4. PLAN: 1. SBO 2/2 to presumed sigmoid colon stricture from chronic diverticulitis, diverticulosis s/p colonic diversion with colostomy placement. POD 4. tolerating soft diet. pain controlled and minimal. Ostomy teaching. Surgery to give further recommendations and following closely. 2. Gastritis. C/w PPI. 3. Retrocecal appendicitis. WBC improved. No plan for further abx. 4. Chronic CAD. C/w ASA. Denies chest pain. 5. Depression /Anxiety. C/w home meds. 6. Tobacco Abuse. C/w nicotine patch. 7. Hypertriglyceridemia. F/u with PCP. 8. DVT px. SCDs, enoxaparin DISPOSITION: Currently under inpatient status. Plan is discharge home when medically improved. VS, I&O, 24H, Fishbone Vital Signs/I&O Vital Signs Date Time Temp Pulse Resp B/P (MAP) Pulse Ox O2 Delivery O2 Flow Rate FiO2 10/06/19 14:00 96.5 91 20 125/71 (89) 91 Room Air 10/03/19 18:00 I&O- Last 24 Hours up to 6 AM 10/06/19 06:00 Intake Total 1990 ml Output Total 1450 ml Balance 540 ml Laboratory Data 24H LABS Laboratory Tests 2 10/06/19 06:19: Immature Granulocyte % (Auto) 1.0, Neutrophils (%) (Auto) 55.9, Lymphocytes (%) (Auto) 25.0, Monocytes (%) (Auto) 11.4H, Eosinophils (%) (Auto) 5.5H, Basophils (%) (Auto) 1.2H, Neutrophils # (Auto) 5.1, Lymphocytes # (Auto) 2.3, Monocytes # (Auto) 1.0H, Eosinophils # (Auto) 0.5, Basophils # (Auto) 0.1, Nucleated Red Blood Cells % (auto) 0.0, Anion Gap 7L, Glomerular Filtration Rate > 60.0, Calcium Level 8.5L, Total Bilirubin 0.5, Aspartate Amino Transf (AST/SGOT) 36, Alanine Aminotransferase (ALT/SGPT) 67, Alkaline Phosphatase 78, Total Protein 6.4, Albumin 2.8L, Albumin/Globulin Ratio 0.78L CBC/BMP Laboratory Tests 10/06/19 06:19 Microbiology Microbiology 09/30/19 Urine Culture - Final, Complete Current Medications Current Medications Medications (Trade) Dose Ordered Sig/Tri Route PRN Reason Start Time Stop Time Status Last Admin Dose Admin Acetaminophen (Tylenol Tab) 650 mg Q4HP PRN PO MILD PAIN or TEMP > 100.4 10/03/19 09:00 Acetaminophen 1000 mg/IV Miscellaneous Supplies 100 ml @ 400 mls/hr Q8HP PRN IV pain 1-5 09/30/19 23:45 10/03/19 09:06 DC Acetaminophen/ Hydrocodone Bitart ([place], Anexsia 5/325) 1 tab Q6HP PRN PO MODERATE/SEVERE PAIN (PS 5-10) 10/03/19 09:00 Alvimopan (Entereg) 12 mg BID PO 10/03/19 09:00 10/06/19 08:32 DC 10/05/19 20:18 Amino Ac/Electrol/ Dextrose/Calcium 2,000 ml @ 65 mls/hr ONCE@1800 IV 10/04/19 18:00 10/05/19 17:59 DC 10/04/19 18:31 Amino Ac/Electrol/ Dextrose/Calcium 2,000 ml @ 75 mls/hr ONCE@1800 IV 10/02/19 18:00 10/03/19 17:59 DC 10/02/19 20:22 Artificial Tears (Akwa Tears) 2 drop QIDP PRN OU DRY EYES 09/30/19 23:45 Aspirin (Aspirin Chewable) 81 mg DAILY PO 10/05/19 09:00 10/06/19 09:14 Ceftriaxone Sodium 2 gm/ Dextrose 50 ml @ 50 mls/hr Q24H IV 09/30/19 23:00 10/02/19 20:21 DC 10/01/19 22:11 Ceftriaxone Sodium (Rocephin) 2 gm Q24H IM 09/30/19 23:00 09/30/19 22:27 DC Ceftriaxone Sodium (Rocephin) 2 gm Q24H IV 09/30/19 23:00 09/30/19 22:32 DC Diatrizoate Meglum/ Diatrizoate Sod (Gastrografin) 10 ml Q30M PO 09/30/19 18:00 09/30/19 18:31 DC 09/30/19 18:44 Enoxaparin Sodium (Lovenox) 40 mg DAILY SC 10/03/19 09:00 10/06/19 09:16 Fat Emulsion Intravenous 500 ml @ 20 mls/hr ONCE@1800 IV 10/01/19 18:00 10/02/19 17:59 DC 10/01/19 18:17 Fat Emulsion Intravenous 500 ml @ 20 mls/hr ONCE@1800 IV 10/02/19 18:00 10/03/19 17:59 DC 10/02/19 20:21 Fat Emulsion Intravenous 500 ml @ 20 mls/hr ONCE@1800 IV 10/03/19 18:00 10/04/19 17:59 DC 10/03/19 18:26 Fat Emulsion Intravenous 500 ml @ 20 mls/hr ONCE@1800 IV 10/04/19 18:00 10/05/19 17:59 DC 10/04/19 18:31 Fentanyl Citrate (Sublimaze) 25 mcg Q5MP PRN IV PAIN LEVEL 5-10 10/02/19 20:30 10/02/19 21:30 DC Furosemide (LASIX injection) 20 mg DAILY IV 10/04/19 09:00 10/06/19 09:16 Heparin Sodium (Heparin (Flush)) 200 units ASDIRECTED PRN IV SEE LABEL COMMENTS 10/01/19 16:00 10/06/19 09:17 Heparin Sodium (Heparin (Flush)) 200 units PICC IV 10/01/19 18:00 10/06/19 06:26 Heparin Sodium (Porcine) (Heparin) 5,000 units Q8H SQ 10/01/19 22:00 10/02/19 09:28 DC 10/02/19 06:27 Home Med (Med Rec Complete!) ASDIRECTED XX 09/30/19 22:30 09/30/19 22:23 DC Home Med (Med Rec Complete!) ASDIRECTED XX 10/01/19 08:45 10/01/19 08:40 DC Hydralazine HCl (Apresoline) 5 mg ASDIRECTED PRN IV TO KEEP SBP<180 , DBP<90 10/02/19 21:30 10/02/19 22:29 DC 10/02/19 21:15 Hydralazine HCl (Apresoline) 10 mg Q8H IV 10/01/19 21:00 10/02/19 12:26 DC Ibuprofen (Advil) 400 mg Q6HP PRN PO MILD/MODERATE PAIN (PS 1-7) 10/03/19 09:00 Insulin Human Lispro (HumaLOG INSULIN) See Protocol Table Q6H MI 10/01/19 18:00 10/02/19 12:01 DC 10/02/19 12:09 Insulin Human Lispro (HumaLOG INSULIN) See Protocol Table Q6H MI 10/02/19 18:00 10/03/19 12:01 DC 10/03/19 06:16 Insulin Human Lispro (HumaLOG INSULIN) See Protocol Table Q6H MI 10/03/19 18:00 10/04/19 12:01 DC 10/04/19 12:56 Insulin Human Lispro (HumaLOG INSULIN) See Protocol Table Q6H MI 10/04/19 18:00 10/05/19 12:01 DC 10/05/19 06:04 Ketorolac Tromethamine (ToRADol) 15 mg Q6H PRN IV MODERATE PAIN (PS 5-7) 10/02/19 20:15 10/03/19 09:06 DC 10/03/19 06:17 Lactated Ringer's 1,000 ml @ 80 mls/hr [id number] IV 10/02/19 20:30 10/02/19 21:30 DC Lactic Acid (Lac-Hydrin 12% Lotion) 1 dose DAILY PRN TOP DRY SKIN 09/30/19 23:45 09/30/19 23:42 DC Lactic Acid (Lac-Hydrin 12% Lotion) APPLY TO AFFECTED AREA DAILY PRN TOP DRY SKIN 09/30/19 23:45 Lisinopril (Prinivil) 20 mg DAILY PO 10/01/19 09:00 10/01/19 20:34 DC 10/01/19 09:46 Lisinopril (Prinivil) 20 mg DAILY PO 10/04/19 09:00 10/06/19 09:20 Menthol/Methyl Salicylate (Bengay Cream) 1 dose TIDP PRN TOP PAIN OR DISCOMFORT 10/06/19 11:00 10/06/19 14:36 Metoprolol Tartrate (Lopressor) 1 mg Q5M IV 10/02/19 20:30 10/02/19 20:51 DC 10/02/19 20:48 Metoprolol Tartrate (Lopressor) 25 mg BID PO 09/30/19 21:00 10/06/19 09:20 Morphine Sulfate (Morphine Sulfate Inj) 2 mg Q2H PRN IV MODERATE/SEVERE PAIN (PS 5-10) 10/02/19 20:15 10/06/19 08:32 DC 10/03/19 02:46 Morphine Sulfate (Morphine Sulfate Inj) 2 mg Q5MP PRN IV PAIN LEVEL 4-7 10/02/19 20:30 10/02/19 21:30 DC Morphine Sulfate (Morphine Sulfate Inj) 4 mg Q3HP PRN IV pain 5-10 09/30/19 23:45 10/02/19 20:21 DC 10/02/19 00:19 Multivitamins 10 ml/Chromium/ Copper/Manganese/ Seleni/Zn 1 ml/ Amino Ac/Electrol/ Dextrose/Calcium 2,011 ml @ 75 mls/hr ONCE@1800 IV 10/01/19 18:00 10/02/19 17:59 DC 10/01/19 18:17 Multivitamins 10 ml/Chromium/ Copper/Manganese/ Seleni/Zn 1 ml/ Amino Ac/Electrol/ Dextrose/Calcium 2,011 ml @ 75 mls/hr ONCE@1800 IV 10/03/19 18:00 10/04/19 17:59 DC 10/03/19 18:26 Nicotine (Nicoderm Cq 21mg) 1 patch DAILY TD 10/01/19 09:00 10/06/19 09:15 Ondansetron HCl (ZOFRAN INJection) 4 mg Q4HP PRN IV NAUSEA OR VOMITING 10/02/19 20:30 10/02/19 21:30 DC Pantoprazole Sodium (Protonix) 40 mg BID IV 09/30/19 21:00 10/02/19 20:21 DC 10/02/19 09:12 Pantoprazole Sodium (Protonix) 40 mg Q24H IV 10/03/19 09:00 10/03/19 09:06 DC Pantoprazole Sodium (Protonix) 40 mg QAM PO 10/03/19 09:00 10/06/19 09:16 Prazosin HCl (Minipress) 1 mg QHS PO 10/03/19 21:00 10/05/19 20:18 Sodium Chloride 1,000 ml @ 50 mls/hr Q20H IV 09/30/19 22:15 10/03/19 09:06 DC 10/01/19 18:38 Sodium Chloride (Saline Lock Flush) 10 ml ASDIRECTED PRN IV SEE LABEL COMMENTS 10/01/19 16:00 10/06/19 09:17 Sodium Chloride (Saline Lock Flush) 10 ml PICC IV 10/01/19 18:00 10/06/19 06:26 Trazodone HCl (Desyrel) 300 mg QHS PO 10/03/19 21:00 10/05/19 20:18 Venlafaxine HCl (Effexor Xr) 225 mg QHS PO 10/03/19 21:00 10/05/19 20:19 Allergies Coded Allergies: No Known Allergies (Unverified , 03/25/14) Delmi Hector MD October 06, 2019 17:00
[2019-10-06 18:00] VITALS: BP 126/73
[2019-10-06] MEDS: PRAZOSIN 1 MG CAP PO SCH (20:23)
[2019-10-06] MEDS: traZODone 100 MG TAB PO SCH (20:24)
[2019-10-06] MEDS: VENLAFAXINE **XR** 75MG CAPSULE PO SCH (20:24)
[2019-10-06 22:00] VITALS: BP 127/73
[2019-10-07 02:00] VITALS: BP 124/78
[2019-10-07] MEDS: SODIUM CHLORIDE 0.9% INJ 10 ML SYR IV SCH (05:12)
[2019-10-07 06:00] VITALS: BP 102/65
[2019-10-07 06:29] LABS: BASO # 0.1 10^3/uL (0.0-0.2); EOS # 0.4 10^3/uL (0.0-0.5); EOS % 4.2 % (0.0-3.0); HEMATOCRIT 44.5 % (42.0-52.0); HEMOGLOBIN 14.7 g/dl (13.5-17.5); LYMPH # 2.5 10^3/uL (1.5-5.0); LYMPH % 24.4 % (24.0-44.0); MEAN CORPUSCULAR HEMOGLOBIN 32.4 pg (27.0-33.0); MONO # 1.1 10^3/uL (0.0-0.8); MONO % 10.4 % (0.0-5.0); NEUTROPHILS % 58.8 % (36.0-66.0); PLATELET COUNT, AUTOMATED 234 10^3/uL (150-450); RED BLOOD COUNT 4.54 10^6/uL (4.30-6.10); WHITE BLOOD COUNT 10.1 10^3/uL (4.0-10.0)
[2019-10-07 07:14] LABS: ALBUMIN 2.9 GM/DL (3.2-5.2); ALT/SGPT 71 U/L (12-78); BILIRUBIN,TOTAL 0.7 MG/DL (0.2-1.0); BLOOD UREA NITROGEN 26 MG/DL (7-18); CALCIUM LEVEL 5.6 MG/DL (8.8-10.2); CARBON DIOXIDE LEVEL 29 MEQ/L (21-32); CHLORIDE LEVEL 104 MEQ/L (98-107); CREATININE FOR GFR 1.06 MG/DL (0.70-1.30); GLOMERULAR FILTRATION RATE > 60.0 (>42); GLUCOSE, FASTING 93 MG/DL (70-100); POTASSIUM SERUM 4.1 MEQ/L (3.5-5.1); SODIUM LEVEL 137 MEQ/L (136-145); TOTAL PROTEIN 6.2 GM/DL (6.4-8.2)
[2019-10-07] MEDS: ASPIRIN 81 MG CHEW TABLET PO SCH (08:49)
[2019-10-07] MEDS: ENOXAPARIN 40MG/0.4ML SYRINGE (J1650 PER 10MG) SC SCH (08:49)
[2019-10-07] MEDS: NICOTINE 21MG/24HR 1 EA TRANSDERMAL TD SCH (08:49)
[2019-10-07 08:50] VITALS: BP 127/71
[2019-10-07] MEDS: PANTOPRAZOLE 40MG TAB (PROTONIX) PO SCH (08:50)
[2019-10-07] MEDS: METOPROLOL TART 25 MG TABLET PO SCH (08:50)
[2019-10-07] MEDS: FUROSEMIDE 20MG/2ML VIAL (J1940) IV SCH (08:50)
[2019-10-07] MEDS: lisinopriL 20 MG TAB PO SCH (08:50)
[2019-10-07] MEDS: SODIUM CHLORIDE 0.9% INJ 10 ML SYR IV PRN (08:52)
[2019-10-07] MEDS ORDERED: MIRA3350 PO (09:56)
[2019-10-07 10:00] VITALS: BP 126/71
--- NOTE | 2019-10-07 13:55 | DS.PDOC ---
Discharge Summary General Date of Admission September 30, 2019 at 22:10 Date of Discharge 10/07/19 Primary Care Physician: NANI AYALA DO Discharge Summary PROCEDURES PERFORMED DURING STAY: None. ADMITTING DIAGNOSES: 1. Colonic obstruction, uncontrolled hypertension. DISCHARGE DIAGNOSES: 1. Colonic obstruction, uncontrolled hypertension, acute gastritis: Retrocecal appendicitis: CAD: Depression: Anxiety COMPLICATIONS/CHIEF COMPLAINT: Colonic Obstruction, Uncontrolled Hypertension. HISTORY OF PRESENT ILLNESS: This is a 79-year-old gentleman who presents with complaints of aching 8 out of 10 in severity, right lower abdominal pain that began last . He consulted his PCP who started him on MiraLAX for constipation. He did have small bowel movements with abdominal pain pro gressively became worse. Today he decided come to the hospital because he couldn't eat without vomiting. He is also complaining of a chronic cough and acute elevation in his blood pressure. On Sunday, his blood pressure is 193/110, but he reports it's "usually good." Per discussion with Dr. Mcknight CT showed narrowing with a possible mass at the rectosigmoid colon; these findings were discussed with Dr. Fitzgerald who added that the patient previously had a colonoscopy with a stricture in the past and was instructed to follow up to have barium studies, but he didn't follow-up. Per Dr.Schiff Marie is aware of the findings of possible appendicitis on CT. NG tube has been placed.. HOSPITAL COURSE: 79-year-old M admitted for SBO s/p diverting colostomy placement, discharge today was postop day #5 SBO 2/2 to presumed sigmoid colon stricture from chronic diverticulitis, diverticulosis s/p colonic diversion with colostomy placement. Patient is tolerating his regular diet and is under control. Ostomy teaching was done. Cleared by surgery for discharge, and patient will be discharged home today on all current medications and follow with surgery and PCP in one week Acute Gastritis. Resolved with PPI and continue the same Retrocecal appendicitis. WBC improved. No plan for further abx. CAD, under well control. Continue home medications Depression /Anxiety. C/w home meds. Tobacco Abuse. C/w nicotine patch. . DISCHARGE MEDICATIONS: Please see below. ALLERGIES: Please see below. PHYSICAL EXAMINATION ON DISCHARGE: VITAL SIGNS: Please see below. GENERAL: Within normal limits HEENT: Jennifer extraocular muscles intact NECK: Supple CARDIOVASCULAR EXAMINATION: S1, S2, regular RESPIRATORY EXAMINATION: Clear to A&P ABDOMINAL EXAMINATION: , Soft, nontender, bowel sounds present EXTREMITIES: No clubbing, cyanosis, edema SKIN: Normal NEUROLOGICAL EXAMINATION: No focal motor sensory deficit PSYCHIATRIC EXAMINATION: Normal LABORATORY DATA: Please see below. IMAGING: Chest x-ray: Impression: Nasogastric tube in satisfactory position. Chronic-appearing interstitial changes. No acute cardiopulmonary process appreciated. PROGNOSIS: ACTIVITY: As tolerated. DIET: As tolerated DISCHARGE PLAN: Discharged home DISPOSITION: Home, Self-Care. DISCHARGE INSTRUCTIONS: 1. As per discharge instructions. ITEMS TO FOLLOWUP ON ON OUTPATIENT: 1. Follow with surgery in one week and PCP in one week. DISCHARGE CONDITION: Stable. TIME SPENT ON DISCHARGE: 26 minutes. Vital Signs/I&Os Vital Signs Date Time Temp Pulse Resp B/P (MAP) Pulse Ox O2 Delivery O2 Flow Rate FiO2 10/07/19 10:00 98.1 83 17 126/71 (89) 95 Room Air 10/03/19 18:00 I&O- Last 24 Hours up to 6 AM 10/07/19 06:00 Intake Total 1710 ml Balance 1710 ml Laboratory Data Labs 24H Laboratory Tests 2 10/07/19 05:42: Immature Granulocyte % (Auto) 1.2, Neutrophils (%) (Auto) 58.8, Lymphocytes (%) (Auto) 24.4, Monocytes (%) (Auto) 10.4H, Eosinophils (%) (Auto) 4.2H, Basophils (%) (Auto) 1.0, Neutrophils # (Auto) 6.0, Lymphocytes # (Auto) 2.5, Monocytes # (Auto) 1.1H, Eosinophils # (Auto) 0.4, Basophils # (Auto) 0.1, Nucleated Red Blood Cells % (auto) 0.0, Anion Gap 4L, Glomerular Filtration Rate > 60.0, Calcium Level 5.6#*L, Total Bilirubin 0.7, Aspartate Amino Transf (AST/SGOT) 35, Alanine Aminotransferase (ALT/SGPT) 71, Alkaline Phosphatase 86, Total Protein 6.2L, Albumin 2.9L, Albumin/Globulin Ratio 0.88L 10/07/19 07:48: Calcium Level 8.8#, Whole Blood Ionized Calcium 4.8 CBC/BMP Laboratory Tests 10/07/19 05:42 Microbiology Microbiology 09/30/19 Urine Culture - Final, Complete Discharge Medications Scheduled Aspirin (Aspirin EC) 81 Mg Tab, 81 MG PO DAILY, (Reported) Lisinopril (Lisinopril) 40 Mg Tab, 20 MG PO DAILY, (Reported) Metoprolol Tartrate (Metoprolol Tartrate) 25 Mg Tablet, 25 MG PO BID, (Reported) Multivit,Calc,Mins/Iron/Folic (Thera-M Tablet) 1 Each Tablet, 1 TAB PO DAILY, ( Reported) Prazosin HCl (Prazosin HCl) 1 Mg Capsule, 1 MG PO QHS, (Reported) Trazodone HCl (Trazodone HCl) 100 Mg Tab, 300 MG PO QHS, (Reported) Venlafaxine HCl (Venlafaxine HCl ER) 75 Mg Cap.er.24h, 225 MG PO QHS, (Reported) Scheduled PRN Ammonium Lactate (Ammonium Lactate) 12% Lotion, 1 APLCT TOP DAILY PRN for DRY SKIN, (Reported) APPLY FROM NECK DOWN Carboxymethylcellulose Sodium (Refresh Tears) 15 Ml Drops, 1 DROP OU QID PRN for DRY EYES, (Reported) Sennosides (Senna Lax) 8.6 Mg Tablet, 2 TAB PO TID PRN for CONSTIPATION, (Reported) Urea (Urea) 85 Gm Cream..g., 1 APLCT TOP DAILY PRN for DRY SKIN, (Reported) APPLY TO FEET Allergies Coded Allergies: No Known Allergies (Unverified , 03/25/14) INO DE LOS SANTOS MD October 07, 2019 13:55
--- NOTE | 2019-10-07 19:19 | ECGEPIP ---
[facility] Test Date: 2019-10-07 Pat Name: ANTHONY WILLIAM Department: Room: [place] [address] Gender: Male [employer] Director: : 1940 Requested By: INO DE LOS SANTOS Order Number: [id number] Reading MD: Sandip Archer Measurements Intervals [place] Rate: 85 P: 47 NC: 149 QRS: -59 QRSD: 138 T: 78 QT: 390 QTc: 465 Interpretive Statements SINUS RHYTHM INTRAVENTRICULAR CONDUCTION DELAY LEFT AXIS DEVIATION POSSIBLE ANTERIOR MYOCARDIAL INFARCTION, OF INDETERMINATE AGE SIMILAR TO 09/30/19 Electronically Signed on 10-07-2019 19:18:51 EDT by Sandip Archer
--- NOTE | 2019-10-08 14:01 | IPN ---
DATE: 10/06/2019 HISTORY: The patient is now postop day #4 from a laparoscopic partial sigmoid resection with end descending colostomy for a colonic obstruction at the sigmoid level. This is most likely from inflammatory disease rather than malignancy. He has been doing very well since his surgery and is currently on a regular diet. His ostomy is functioning well. He is taking no pain medicines currently. He reports that he has not yet been instructed to any significant degree on the care of the stoma. Vital signs show that he has been afebrile over the past 24 hours. His pulse has been in the 80s and low 90s. Blood pressure is excellent and his room air oxygen saturation is normal. Intake and output shows that yesterday he had 1800 in with 2200 out. He has been off of his total parenteral nutrition for greater than a day. He is having excellent output of stool from his colostomy. PHYSICAL EXAMINATION: The patient is alert and quite jovial. He appears quite comfortable while lying at rest in the hospital bed. Sclerae are anicteric. Heart exam shows a regular rhythm and the lungs are clear. The abdomen is significantly softer and flatter than when I last saw him before the weekend. His stoma is perhaps mildly edematous but pink and viable with good output. His incisions are clean and dry. He does not have any significant point tenderness on exam. Laboratory studies today show white count of 9, hemoglobin 16, hematocrit 47, and a platelet count of 226,000. Differential count shows 56% neutrophils, 25% lymphocytes and 11% monocytes. His chemistry profile shows a sodium of 139, potassium 3.8, chloride 106, CO2 of 26, BUN of 29, creatinine 1.0 and a glucose of 92. His liver function tests are not significantly abnormal. A CEA level was done on the , which is 1.3 well within the normal range. IMPRESSION: Patient is making excellent progress. He is not taking any pain medicine currently and his colostomy is working well. I have recommended that he continue to walk as able with assistance if needed. I believe he should be ready for discharge in the morning if he is felt to be stable from a medical standpoint. He will need a visiting nurse to assist in his education for care of his stoma. He should followup with me in the office in a couple of weeks and we will ultimately need to make a plan for further evaluation of his colon and then resection of his strictured area with anastomosis.
== END 2019-10-07 12:11 | disposition home or self-care (01) | DRG 330 ==
LOC: M ED 16:34 → M ED INP 22:10 → ENRESERV 23:14 → M MSPAV 10-01 00:39
PROVIDERS: ADMIT Internal Medicine; ATTEND Internal Medicine
PROC: 02HV33Z Insertion of Infusion Device into Superior Vena Cava, Percutaneous Approach (ICD-10-PCS; 2019-10-01)
PROC: 0D1N4Z4 Bypass Sigmoid Colon to Cutaneous, Percutaneous Endoscopic Approach (ICD-10-PCS; 2019-10-02)
PROC: 0DBN4ZZ Excision of Sigmoid Colon, Percutaneous Endoscopic Approach (ICD-10-PCS; principal; 2019-10-02 09:31)
DX: K56.609 Unspecified intestinal obstruction, unspecified as to partial versus complete obstruction (principal); K57.32 Diverticulitis of large intestine without perforation or abscess without bleeding; J98.11 Atelectasis; K29.70 Gastritis, unspecified, without bleeding; E66.9 Obesity, unspecified; K37 Unspecified appendicitis; E87.70 Fluid overload, unspecified; I10 Essential (primary) hypertension; I25.10 Atherosclerotic heart disease of native coronary artery without angina pectoris; Z91.19 Patient's noncompliance with other medical treatment and regimen; G47.30 Sleep apnea, unspecified; F41.9 Anxiety disorder, unspecified; F32.9 Major depressive disorder, single episode, unspecified; F17.200 Nicotine dependence, unspecified, uncomplicated; Z79.899 Other long term (current) drug therapy; Z79.82 Long term (current) use of aspirin

== ENCOUNTER → 2019-12-02 | Outpatient (REF) | payer OTHER ==
[~2019-12-02] MED LIST changes: +AMMO12LO TOP; +GNP8.6TA PO; +MED REC COMMENT; +METO25TA4 PO; +MIRA3350 PO; +PRAZ1CAP46 PO; +REFR0.5D8 OU; +THERTAB20 PO; +UREA20CR4 TOP; +VENL75CA2 PO
== END ==
LOC: M LAB REF 10:37
PROVIDERS: ATTEND Physician Assistant
DX: C44.42 Squamous cell carcinoma of skin of scalp and neck (principal)
CPT/HCPCS: 11102; 11103; 17000; 17003; 88305; G0463

== ENCOUNTER → 2019-12-18 | Outpatient (CLI) | payer OTHER | LOC: M LABSMTC 11:33 | PROVIDERS: ATTEND Anesthesiology | DX: Z01.818 Encounter for other preprocedural examination (principal); Z11.59 Encounter for screening for other viral diseases ==

== ENCOUNTER 2019-12-23 09:11 | Day surgery (SDC) | payer OTHER ==
[~2019-12-23] VITALS: Ht 172.7 cm; Wt 82.6 kg
[~2019-12-23 09:11] MED LIST changes: +LIDOCAINE 2% 100MG/5ML SDV (FOR ANES.) As Ordered ONE; +propofoL 200 MG/20 ML VIAL As Ordered ONE
--- NOTE | 2020-02-04 11:26 | ROOR ---
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 Procedure: Pre-Anesthesia Assessment: - Prior to the procedure, a History and Physical was performed, and patient medications and allergies were reviewed. The patient is competent. The risks and benefits of the procedure and the sedation options and risks were discussed with the patient. All questions were answered and informed consent was obtained. Patient identification and proposed procedure were verified by the physician, the nurse and the anesthesiologist in the procedure room. Mental Status Examination: alert and oriented. Airway Examination: normal oropharyngeal airway and neck mobility. Prophylactic Antibiotics: The patient does not require prophylactic antibiotics. Prior Anticoagulants: The patient has taken no previous anticoagulant or antiplatelet agents. ASA Grade Assessment: III - A patient with severe systemic disease. After reviewing the risks and benefits, the patient was deemed in satisfactory condition to undergo the procedure. The anesthesia plan was to use monitored anesthesia care (MAC). Immediately prior to administration of medications, the patient was re-assessed for adequacy to receive sedatives. The heart rate, respiratory rate, oxygen saturations, blood pressure, adequacy of pulmonary ventilation, and response to care were monitored throughout the procedure. The physical status of the patient was re-assessed after the procedure. The Colonoscope was introduced through the descending colostomy and advanced to the cecum, identified by appendiceal orifice and ileocecal valve. The colonoscopy was performed without difficulty. The patient tolerated the procedure well. The quality of the bowel preparation was fair. The Colonoscope was introduced through the anus and advanced to the sigmoid colon to examine a stenosis. This was the intended extent. Findings: There was a small lipoma, 20 mm in diameter, in the proximal transverse colon. Multiple medium-mouthed diverticula were found in the descending colon. The rectum appeared normal. Multiple medium-mouthed diverticula were found in the sigmoid colon. A benign-appearing, intrinsic stenosis was found in the distal sigmoid colon and was non-traversed. The scope was advanced to approximately 23cm at which point it was impossible to advance the scope further. Impression: - Preparation of the colon was fair. - Small lipoma in the proximal transverse colon. - Diverticulosis in the descending colon. - The rectum is normal. - Diverticulosis in the sigmoid colon. - Stricture in the distal sigmoid colon. - No specimens collected. Recommendation: - Discharge patient to home. - Resume previous diet. - Continue present medications. - Return to my office at appointment to be scheduled. Jose Becerra MD Jose Becerra MD 12/23/2019 11:04:37 AM Electronically signed by Jose Becerra MD Number of Addenda: 0 Note Initiated On: 12/23/2019 10:18 AM Estimated Blood Loss: Estimated blood loss: none.
== END 2019-12-23 11:15 | disposition home or self-care (01) ==
LOC: M OPP 09:11
PROVIDERS: ATTEND Surgery
DX: D17.5 Benign lipomatous neoplasm of intra-abdominal organs (principal); K56.609 Unspecified intestinal obstruction, unspecified as to partial versus complete obstruction; K57.30 Diverticulosis of large intestine without perforation or abscess without bleeding; I25.2 Old myocardial infarction; F17.210 Nicotine dependence, cigarettes, uncomplicated; Z79.82 Long term (current) use of aspirin; Z79.899 Other long term (current) drug therapy

== ENCOUNTER 2020-03-23 07:30 | Inpatient (IN) | payer OTHER ==
[~2020-03-23] VITALS: Ht 172.7 cm; Wt 85.5 kg
[~2020-03-23 07:30] MED LIST changes: -LIDOCAINE 2% 100MG/5ML SDV (FOR ANES.) As Ordered ONE; -propofoL 200 MG/20 ML VIAL As Ordered ONE
[2020-04-15] MEDS ORDERED: cefoTEtan DISODIUM 2 GM in D5W MINI-BAG PLUS 50 ML IV ONE (06:30)
[2020-04-15] MEDS ORDERED: LR 1,000 ML IV ONE (06:30)
[2020-04-15] MEDS ORDERED: ALVIMOPAN 12 MG CAPSULE (ENTEREG) PO ONE (06:30)
[2020-04-15] MEDS ORDERED: fentaNYL 250 MCG/5 ML INJECTION (J3010) As Ordered ONE (10:23)
[2020-04-15] MEDS ORDERED: ROCURONIUM BROMIDE 50 MG/5 ML VIAL As Ordered ONE ×4 (10:23→19:45)
[2020-04-15] MEDS ORDERED: propofoL 200 MG/20 ML VIAL As Ordered ONE (10:23)
[2020-04-15] MEDS ORDERED: LIDOCAINE 2% 100MG/5ML SDV (FOR ANES.) As Ordered ONE (10:23)
[2020-04-15] MEDS ORDERED: MIDAZOLAM INJ 2MG/2ML VIAL (J2250 PER 1MG) As Ordered ONE (10:24)
--- NOTE | 2020-04-15 11:43 | HPE ---
ANTICIPATED DATE OF ADMISSION: 04/15/2020 ADMITTING DIAGNOSIS: Sigmoid stricture with diverting colostomy. HISTORY OF PRESENT ILLNESS: The patient is an 80-year-old man who is now being admitted to the hospital to undergo a robotic assisted sigmoid resection with takedown of colostomy and coloproctostomy. He had been admitted on or about September 30 with abdominal distention and pain. He was found to have a sigmoid obstruction. He did not resolve with non-operative management and underwent a laparoscopic creation of an end colostomy for diversion on October 01. He did well following diversion with decompression of the colon. He subsequently followed up in the office and was scheduled for a colonoscopy. His colonoscopy through the stoma revealed a small lipoma in the proximal transverse colon with multiple diverticula in the descending colon. Insertion of the scope through the anus revealed a normal appearing rectum with multiple diverticula in the sigmoid colon. Stenosis was noted at approximately 23 cm, and it was impossible to advance the scope beyond this point. The patient has healed well from his prior surgery, and he is now being admitted to undergo a robotic assisted laparoscopic resection of his remaining sigmoid colon with takedown of his colostomy and coloproctostomy. He underwent preoperative evaluation with his primary medical physician. Dr. Dennis Culver and had a dipyridamole stress test obtained on April 12. 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 The patient is to perform a full mechanical and antibiotic bowel preparation on April 14 and will be admitted on April 15 for his surgery. ALLERGIES: The patient denies any known medical allergies. MEDICATIONS: * Aspirin 81 mg p.o. daily. * Docusate and Sennosides tablets two tablets three times daily p.r.n. for constipation. * Lisinopril 40 mg tablets one p.o. daily. * Metoprolol Tartrate 25 mg p.o. twice daily. * Multivitamin tablet daily. * Miralax p.r.n. for constipation. * Prazosin Hydrochloride one mg capsules, one capsule daily at bedtime. * Trazodone 100 mg three tablets daily at bedtime. * Venlafaxine 75 mg three tablets daily. PAST MEDICAL HISTORY: The patient's past medical history is significant for: * Coronary artery disease. * Anxiety and depression. * Post traumatic stress disorder. * Hyperlipidemia. * Chronic obstructive pulmonary disease secondary to smoking. * Reportedly a history of sleep apnea. * Hypertension. PAST SURGICAL HISTORY: The patient's past surgical history is significant for: * Status post an angioplasty in approximately 1994 or 1995. * A one vessel coronary artery bypass in approximately 2009. * He underwent his diverting colostomy with a limited resection of a portion of the sigmoid colon on October 02, 2019. FAMILY HISTORY: The patients father apparently succumbed to alcoholism and his mother from heart disease and pneumonia. He has a brother who suffered from an aortic aneurysm. SOCIAL HISTORY: The patient is a current smoker, smoking half to one pack per day of cigarettes. He reports an alcohol intake of approximately two drinks per day. REVIEW OF SYSTEMS: The patient's review of systems reveals no recent weight change. He denies any fevers or chills. He denies any acute shortness of breath, cough, wheezing or sputum production. He is not having any chest pain or palpitations. He denies any abdominal pain. His colostomy has been functioning well with no history of bleeding. He has had no recent rectal output. He denies any dysuria or hematuria. He has some joint pains and muscle aches but nothing acute. There is no history of DVT or pulmonary embolus and no history of seizure or stroke. His recent height is reported as 67 with a weight of 189 pounds. PHYSICAL EXAMINATION: GENERAL APPEARANCE: A pleasant, older man in no acute distress. SKIN: Warm and dry. HEENT: Sclerae are anicteric. Mucous membranes are moist. NECK: Supple without mass or bruits. HEART: Regular rate and rhythm. LUNGS: Bilateral breath sounds that are somewhat distant but without any wheezes or rhonchi. ABDOMEN: Mildly protuberant but soft. He has a colostomy in his left upper quadrant which is nicely matured and functioning well. He has no evidence of inguinal or incisional hernia. There is no palpable mass. Digital rectal exam is not repeated at this time. EXTREMITIES: Without significant edema. 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 * Atherosclerotic coronary artery disease status post single vessel bypass in 2009 with recent nuclear stress test showing a fixed apical left ventricular defect without reversibility stable from prior studies. * Hypertension. * Chronic obstructive pulmonary disease. * Probable sleep apnea. * Hyperlipidemia. * Anxiety/depression/PTSD. * Ongoing cigarette use. PLAN: The patient is being admitted on the morning of April 15 to undergo surgery for resection of his sigmoid colon and takedown of his colostomy. He will perform his antibiotic and mechanical bowel preparation on April 14. He will receive preoperative Cefotetan and Entereg. The patient has been counseled in the office for the surgery. Risks include but are not limited to: bleeding, infection, scarring, adverse drug reaction, need for further surgery, injury of internal organ, anastomotic leak, and hernia. He has had an opportunity to ask questions and these were answered to the best of my ability. He desires to proceed with the surgery. He was told to anticipate a hospital stay of approximately 3 days. BLADIMIR
[2020-04-15] MEDS ORDERED: BUPIVACAINE HCL 0.25% 30ML VIAL As Ordered ONE (11:50)
[2020-04-15] MEDS ORDERED: HYDROmorphone HCL 2 MG/ML 1ML VIAL (J1170) As Ordered ONE (14:47)
[2020-04-15] MEDS ORDERED: LABETALOL 100MG/20ML VIAL As Ordered ONE (15:08)
[2020-04-15] MEDS ORDERED: hydrALAZINE 20MG/ML 1ML VIAL (J0360 PER 20MG) As Ordered ONE (16:43)
[2020-04-15] MEDS ORDERED: PHENYLephrine HCL 500 MCG/5 ML (100MCG/ML) SYRINGE (J2370) As Ordered ONE (18:06)
[2020-04-15] MEDS ORDERED: PHENYLEPHRINE 10MG/ML 1ML VIAL (J2370 PER 1) As Ordered ONE (18:12)
[2020-04-15] MEDS ORDERED: DESFLURANE 240 ML INHALANT As Ordered ONE (19:15)
[2020-04-15] MEDS ORDERED: SUGAMMADEX SODIUM 500 MG/5 ML VIAL (BRIDION) As Ordered ONE (20:34)
[2020-04-15] MEDS ORDERED: KETOROLAC 60MG 2ML VIAL As Ordered ONE (20:35)
[2020-04-15] MEDS ORDERED: ACETAMINOPHEN TAB 650MG DOSE (2X325MG) PO PRN (21:00)
[2020-04-15] MEDS ORDERED: fentaNYL 100 MCG/2 ML INJECTION (J3010) IV PRN (21:30)
[2020-04-15] MEDS ORDERED: ONDANSETRON 4MG/2ML VIAL IV PRN (21:30)
[2020-04-15] MEDS ORDERED: KETOROLAC 30 MG/ML 1ML VIAL IV PRN (21:30)
[2020-04-15] MEDS ORDERED: METOCLOPRAMIDE INJ 10MG/2ML VIAL (J2765 PER 1) IV PRN (21:30)
[2020-04-15] MEDS ORDERED: oxyCODONE 5MG TAB PO PRN (21:30)
[2020-04-15] MEDS ORDERED: MEPERIDINE INJ 25 MG/ML VIAL (J2175) IV PRN (21:30)
[2020-04-15] MEDS ORDERED: LR 1,000 ML IV SCH (21:30)
[2020-04-15] MEDS ORDERED: PHENYLephrine HCL 500 MCG/5 ML (100MCG/ML) SYRINGE (J2370) IV SCH (21:45)
[2020-04-15] MEDS ORDERED: LR 500 ML IV SCH (21:45)
[2020-04-15] MEDS ORDERED: PHENYLephrine HCL 500 MCG/5 ML (100MCG/ML) SYRINGE (J2370) IV PRN (22:00)
[2020-04-15 22:07] LABS: ALBUMIN 2.8 GM/DL (3.2-5.2); BLOOD UREA NITROGEN 18 MG/DL (7-18); CALCIUM LEVEL 8.3 MG/DL (8.8-10.2); CARBON DIOXIDE LEVEL 23 MEQ/L (21-32); CHLORIDE LEVEL 107 MEQ/L (98-107); CREATININE FOR GFR 1.75 MG/DL (0.70-1.30); GLOMERULAR FILTRATION RATE 40.1 (>35); GLUCOSE, FASTING 172 MG/DL (70-100); PHOSPHORUS LEVEL 5.2 MG/DL (2.5-4.9); POTASSIUM SERUM 4.9 MEQ/L (3.5-5.1); SODIUM LEVEL 138 MEQ/L (136-145); TROPONIN I < 0.02 NG/ML (< 0.10)
[2020-04-15] MEDS ORDERED: PHENYLEPHRINE HCL INJ 10 MG in D5W 99 ML IV SCH (22:30)
[2020-04-15 22:47] VITALS: BP 127/69
[2020-04-15] MEDS: traZODone 100 MG TAB PO SCH (23:12)
[2020-04-15 23:20] VITALS: BP 136/71
[2020-04-15] MEDS: LR 1,000 ML IV SCH (23:22)
[2020-04-15 23:50] VITALS: BP 137/70
[2020-04-16] VITALS (10 sets, daily range): BP systolic 127–163; BP diastolic 57–83; O2SAT 93
[2020-04-16] MEDS: VENLAFAXINE **XR** 75MG CAPSULE PO SCH ×2 (00:11→20:39)
[2020-04-16] MEDS: METOPROLOL TART 25 MG TABLET PO SCH ×3 (00:12→20:40)
[2020-04-16] MEDS ORDERED: cefoTEtan DISODIUM 2 GM in D5W MINI-BAG PLUS 50 ML IV ONE (00:30)
[2020-04-16] MEDS: PRAZOSIN 1 MG CAP PO SCH ×2 (00:40→20:39)
[2020-04-16] MEDS: ONDANSETRON 4MG/2ML VIAL IV PRN ×2 (04:14→10:27)
[2020-04-16 08:44] LABS: BASO % 0.1 % (0.0-1.0); HEMATOCRIT 39.8 % (42.0-52.0); HEMOGLOBIN 12.5 g/dl (13.5-17.5); LYMPH # 1.2 10^3/uL (1.5-5.0); LYMPH % 7.5 % (24.0-44.0); MEAN CORPUSCULAR HEMOGLOBIN 31.3 pg (27.0-33.0); MEAN CORPUSCULAR HGB CONC 31.4 g/dl (32.0-36.5); MEAN CORPUSCULAR VOLUME 99.5 fl (80.0-96.0); MONO # 1.5 10^3/uL (0.0-0.8); MONO % 9.3 % (0.0-5.0); NEUTROPHILS # 12.9 10^3/uL (1.5-8.5); NEUTROPHILS % 82.5 % (36.0-66.0); PLATELET COUNT, AUTOMATED 251 10^3/uL (150-450); WHITE BLOOD COUNT 15.7 10^3/uL (4.0-10.0)
[2020-04-16 09:02] LABS: CALCIUM LEVEL 8.5 MG/DL (8.8-10.2); CREATININE FOR GFR 1.52 MG/DL (0.70-1.30); GLOMERULAR FILTRATION RATE 47.2 (>35); POTASSIUM SERUM 4.5 MEQ/L (3.5-5.1)
[2020-04-16] MEDS: LR 1,000 ML IV SCH ×2 (09:44→16:28)
[2020-04-16] MEDS: KETOROLAC 30 MG/ML 1ML VIAL IV PRN ×2 (09:46→22:09)
[2020-04-16] MEDS: MORPHINE 2 MG/ML 1ML VIAL (J2270) IV PRN ×2 (10:28→20:41)
[2020-04-16] MEDS: ENOXAPARIN 40MG/0.4ML SYRINGE (J1650 PER 10MG) SC SCH (11:40)
[2020-04-16] MEDS: lisinopriL 40 MG TAB PO SCH (11:41)
[2020-04-16] MEDS: NORCO, ANEXSIA 5/325MG TABLET (HYDROcodone/ACETAMINOPHEN) PO PRN (16:28)
[2020-04-16] MEDS: traZODone 100 MG TAB PO SCH (20:40)
[2020-04-17] VITALS (7 sets, daily range): BP systolic 128–137; BP diastolic 66–69; O2SAT 97
[2020-04-17] MEDS: ENOXAPARIN 40MG/0.4ML SYRINGE (J1650 PER 10MG) SC SCH (08:08)
[2020-04-17] MEDS: METOPROLOL TART 25 MG TABLET PO SCH ×2 (08:09→21:22)
[2020-04-17] MEDS: KETOROLAC 30 MG/ML 1ML VIAL IV PRN ×2 (08:09→21:23)
[2020-04-17] MEDS: lisinopriL 40 MG TAB PO SCH (08:09)
[2020-04-17 08:12] LABS: BASO % 0.3 % (0.0-1.0); EOS # 0.1 10^3/uL (0.0-0.5); EOS % 0.9 % (0.0-3.0); HEMATOCRIT 36.3 % (42.0-52.0); HEMOGLOBIN 11.5 g/dl (13.5-17.5); LYMPH # 1.2 10^3/uL (1.5-5.0); LYMPH % 8.6 % (24.0-44.0); MEAN CORPUSCULAR HEMOGLOBIN 31.8 pg (27.0-33.0); MEAN CORPUSCULAR HGB CONC 31.7 g/dl (32.0-36.5); MEAN CORPUSCULAR VOLUME 100.3 fl (80.0-96.0); MONO # 1.2 10^3/uL (0.0-0.8); NEUTROPHILS # 11.7 10^3/uL (1.5-8.5); NEUTROPHILS % 81.8 % (36.0-66.0); PLATELET COUNT, AUTOMATED 192 10^3/uL (150-450); RED BLOOD COUNT 3.62 10^6/uL (4.30-6.10); WHITE BLOOD COUNT 14.4 10^3/uL (4.0-10.0)
[2020-04-17] MEDS: LR 1,000 ML IV SCH (09:37)
[2020-04-17] MEDS: NICOTINE 21MG/24HR 1 EA TRANSDERMAL TD SCH (12:01)
[2020-04-17] MEDS: ALVIMOPAN 12 MG CAPSULE (ENTEREG) PO SCH ×2 (13:54→21:21)
[2020-04-17] MEDS: NORCO, ANEXSIA 5/325MG TABLET (HYDROcodone/ACETAMINOPHEN) PO PRN (13:55)
--- NOTE | 2020-04-17 14:33 | ECGEPIP ---
[facility] Test Date: 2020-04-15 Pat Name: ANTHONY WILLIAM Department: Room: [place] [id number] Gender: Male Pattern Clerk: JENNIFFER : 1940 Requested By: Jesus Vasquez Order Number: [id number] Reading MD: Stanford Knight Measurements Intervals [place] Rate: 92 P: 51 IA: 163 QRS: -59 QRSD: 131 T: 69 QT: 386 QTc: 479 Interpretive Statements SINUS RHYTHM INTRAVENTRICULAR CONDUCTION DELAY MARKED LEFT AXIS DEVIATION CONSIDER PRIOR ANTERIOR INFARCT Compared to 2 tracings in the system, no remarkable changes Electronically Signed on 04-17-2020 14:32:57 EST by Stanford Knight
[2020-04-17] MEDS: MORPHINE 2 MG/ML 1ML VIAL (J2270) IV PRN (15:18)
[2020-04-17] MEDS: PRAZOSIN 1 MG CAP PO SCH (21:21)
[2020-04-17] MEDS: traZODone 100 MG TAB PO SCH (21:21)
[2020-04-17] MEDS: VENLAFAXINE **XR** 75MG CAPSULE PO SCH (21:21)
[2020-04-18] VITALS (7 sets, daily range): BP systolic 129–163; BP diastolic 65–76; O2SAT 95
[2020-04-18] MEDS: METOPROLOL TART 25 MG TABLET PO SCH ×2 (08:49→21:04)
[2020-04-18] MEDS: ALVIMOPAN 12 MG CAPSULE (ENTEREG) PO SCH ×2 (08:49→21:04)
[2020-04-18] MEDS: NICOTINE 21MG/24HR 1 EA TRANSDERMAL TD SCH (08:49)
[2020-04-18] MEDS: lisinopriL 20 MG TAB PO SCH (08:49)
[2020-04-18] MEDS: KETOROLAC 30 MG/ML 1ML VIAL IV PRN (08:53)
[2020-04-18] MEDS: ENOXAPARIN 40MG/0.4ML SYRINGE (J1650 PER 10MG) SC SCH (08:53)
[2020-04-18] MEDS: LR 1,000 ML IV SCH (09:27)
[2020-04-18] MEDS ORDERED: NORCO, ANEXSIA 5/325MG TABLET (HYDROcodone/ACETAMINOPHEN) PO PRN (10:00)
[2020-04-18] MEDS ORDERED: IBUPROFEN 400 MG TAB PO PRN (10:00)
[2020-04-18] MEDS: ASPIRIN 81 MG ENTERIC TAB PO SCH (10:29)
[2020-04-18] MEDS: VENLAFAXINE **XR** 75MG CAPSULE PO SCH (21:04)
[2020-04-18] MEDS: PRAZOSIN 1 MG CAP PO SCH (21:04)
[2020-04-18] MEDS: traZODone 100 MG TAB PO SCH (21:05)
[2020-04-19 02:00] VITALS: BP 132/69
[2020-04-19 06:00] VITALS: BP 138/83
[2020-04-19 06:39] LABS: BASO # 0.1 10^3/uL (0.0-0.2); BASO % 0.4 % (0.0-1.0); EOS # 0.2 10^3/uL (0.0-0.5); EOS % 1.9 % (0.0-3.0); HEMATOCRIT 34.9 % (42.0-52.0); HEMOGLOBIN 11.1 g/dl (13.5-17.5); LYMPH # 1.4 10^3/uL (1.5-5.0); LYMPH % 11.1 % (24.0-44.0); MEAN CORPUSCULAR HEMOGLOBIN 30.7 pg (27.0-33.0); MEAN CORPUSCULAR HGB CONC 31.8 g/dl (32.0-36.5); MEAN CORPUSCULAR VOLUME 96.7 fl (80.0-96.0); MONO # 1.1 10^3/uL (0.0-0.8); MONO % 8.9 % (0.0-5.0); NEUTROPHILS # 9.6 10^3/uL (1.5-8.5); NEUTROPHILS % 77.1 % (36.0-66.0); PLATELET COUNT, AUTOMATED 249 10^3/uL (150-450); RED BLOOD COUNT 3.61 10^6/uL (4.30-6.10); WHITE BLOOD COUNT 12.4 10^3/uL (4.0-10.0)
[2020-04-19 07:15] LABS: ALBUMIN 2.5 GM/DL (3.2-5.2); ALT/SGPT 40 U/L (12-78); BILIRUBIN,TOTAL 0.8 MG/DL (0.2-1.0); BLOOD UREA NITROGEN 11 MG/DL (7-18); CALCIUM LEVEL 8.4 MG/DL (8.8-10.2); CARBON DIOXIDE LEVEL 31 MEQ/L (21-32); CHLORIDE LEVEL 104 MEQ/L (98-107); GLOMERULAR FILTRATION RATE > 60.0 (>35); GLUCOSE, FASTING 103 MG/DL (70-100); POTASSIUM SERUM 3.9 MEQ/L (3.5-5.1); SODIUM LEVEL 140 MEQ/L (136-145); TOTAL PROTEIN 5.8 GM/DL (6.4-8.2)
--- NOTE | 2020-04-19 09:11 | IPN ---
DATE: 04/16/2020 SUBJECTIVE: The patient is now postop day number one from a robotic assisted laparoscopic sigmoid resection with takedown of his colostomy and colorectal anastomosis. His surgery lasted approximately six and a half hours due to extensive scarring in the pelvis, making mobilization of the rectosigmoid very difficult. He also required mobilization of the splenic flexure and there was a small capsular tear of the spleen that had to be managed as well. He also had an enterotomy which occurred in the course of taking down extensive adhesions to the small bowel, and this required repair as well. He has done overall well overnight. 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 Vital signs show that he has been afebrile since surgery. Pulse is in the 70s and low 80s and his blood pressure is good. He is on nasal cannula oxygen with pulse oximetry in the low 90s. Intake and output show that he had 3,450 in yesterday with a total of 600 mL of urine and an estimated blood loss of 200 mL. He did have his Cerda catheter reinserted early this morning as well due to an inability to void and his urine output has been good since then. PHYSICAL EXAMINATION: GENERAL APPEARANCE: The patient is lying quietly in the hospital bed. He is alert and oriented. He is complaining of some discomfort of the abdomen, particularly with cough or movement. He has not yet been out of bed at the time of my visit which was approximately noon. SKIN: Warm and dry. HEART: Regular rhythm. LUNGS: Clear. ABDOMEN: Obese and mildly protuberant. His dressings are clean and dry. He does have bowel sounds present. He has some abdominal tenderness. GENITOURINARY: Cerda catheter is draining clear light yellow urine. LABORATORY STUDIES: This morning white count of 16, hemoglobin 12, hematocrit 40 and a platelet count of 251,000. Differential count shows 82% neutrophils, 8% lymphocytes and 9% monocytes. Chemistry profile showed normal electrolytes with a BUN of 21, creatinine 1.2 and a glucose of 129. He had a troponin done at 9:22 last evening after surgery which was less than 0.02. IMPRESSION: The patient has done well overnight since surgery. He did have some small episodes of emesis very early this morning which he related to coughing up some phlegm. He has had nothing since about 6:00 this morning and reports no nausea or vomiting. His urine output is good. His Cerda catheter was reinserted in the marine engine machinist apprentice hours reportedly because of an inability to void. His procedure had been long and his Cerda catheter was removed at the conclusion of the procedure. It may that he was just still sedated enough and under the influence of narcotics that he did not void. PLAN: The patient will be placed back on some clear liquids which had been held by my covering physician after his episodes of emesis. The Cerda catheter will be continued until tomorrow. I will recheck a CBC in the morning. He is encouraged to be up out of bed and ambulatory. BLADIMIR
--- NOTE | 2020-04-19 09:16 | IPN ---
DATE: 04/17/2020 SUBJECTIVE: The patient is now postop day number two from a robotic assisted laparoscopic sigmoid resection and mobilization of the splenic flexure with colorectal anastomosis. He had a prolonged procedure of approximately six and a half hours which completed in the evening of the . He has been doing well postop but has not passed much rectally. He does report some passage of flatus but no stool to speak of. Vital signs show that he has been afebrile over the past 24 hours. Pulse is in the 70s and low 80s and his blood pressure is excellent. He is on 2-3 liters of nasal cannula oxygen with an oximetry of 93%. Intake and output show that yesterday he had 2,800 in with 1,550 of urine output. He did have several small episodes of emesis early yesterday morning but none since. PHYSICAL EXAMINATION: GENERAL APPEARANCE: The patient is lying quietly on the hospital bed. He denies any nausea. He is alert and oriented. SKIN: Warm and dry. HEART: Regular rate and rhythm of about 80. LUNGS: Distant breath sounds bilaterally. ABDOMEN: Somewhat distended and fairly firm. He does have active bowel sounds present. His dressings are clean and dry. LABORATORY STUDIES: His white count is slightly decreased to 14,000 today from 16 yesterday. Hemoglobin is 12 with a hematocrit of 36 and the platelet count is 192,000. Differential count shows 82% neutrophils, 9% lymphocytes and 8% monocytes. IMPRESSION: The patient is doing well postop day number two. He has tolerated clear liquids but has not yet had a significant return of bowel function, though he does have active bowel sounds. His Cerda catheter was removed earlier today, and he has voided twice since then without difficulty. He has been up out of bed to ambulate. He is requesting a nicotine patch because of his ongoing smoking history. PLAN: The patient will be started on Entereg. He is not taking much in the way of narcotics, but I will start the Entereg at this point. I will keep him on liquids but will advance him to full liquids until we see some increased evidence of bowel function. I will provide him with a nicotine transdermal patch. I encouraged him to be up out of bed and will have the nurse change his dressings at this point. BLADIMIR
--- NOTE | 2020-04-19 09:18 | IPN ---
DATE: 04/18/2020 SUBJECTIVE: The patient is now postop day number three from a robotic assisted sigmoid resection with mobilization of the splenic flexure and coloproctostomy. He had been a little slow to tolerate his diet. He was quite distended postop day one and postop day two and was advanced to full liquids yesterday. He did have two bowel movements overnight with passage of a large amount of gas. He feels better today because of that. He denies any nausea or vomiting. Vital signs show that he has been afebrile over the past 24 hours. His pulse has ranged primarily in the 80s and 90s over the last day. His blood pressure is good and his oxygen saturation currently on one liter of nasal cannula oxygen has varied between 89 and 93 while I have been seeing him for this visit. PHYSICAL EXAMINATION: GENERAL APPEARANCE: The patient is alert and appears fairly comfortable. HEART: Regular rhythm. LUNGS: Distant but clear breath sounds. ABDOMEN: A little less distended today though still slightly full. It is clearly softer. He has bowel sounds present. His incisions are dressed. He does have active bowel sounds. LABORATORY STUDIES: He has no new labs today. IMPRESSION: The patient is doing well with some return of bowel function noted overnight. PLAN: The patient will be advanced to a regular diet. I will saline lock his IV at this point. I will request a physical therapy home safety evaluation in anticipation of his discharge in the next 1-2 days. I will check a CBC with a differential and a comprehensive chemistry panel in the morning. BLADIMIR
[2020-04-19 10:00] VITALS: BP 144/73
[2020-04-19] MEDS: NICOTINE 21MG/24HR 1 EA TRANSDERMAL TD SCH (10:40)
[2020-04-19] MEDS: ENOXAPARIN 40MG/0.4ML SYRINGE (J1650 PER 10MG) SC SCH (10:40)
[2020-04-19] MEDS: ALVIMOPAN 12 MG CAPSULE (ENTEREG) PO SCH (10:42)
[2020-04-19] MEDS: ASPIRIN 81 MG ENTERIC TAB PO SCH (10:42)
[2020-04-19 10:43] VITALS: BP 154/81
[2020-04-19] MEDS: METOPROLOL TART 25 MG TABLET PO SCH (10:43)
[2020-04-19] MEDS: lisinopriL 20 MG TAB PO SCH (10:43)
--- NOTE | 2020-04-19 11:06 | RO ---
DATE OF OPERATION: 04/15/2020 PREOPERATIVE DIAGNOSIS: Sigmoid colonic stricture with diverting colostomy. POSTOPERATIVE DIAGNOSIS: Sigmoid stricture with abscess and extensive adhesions with diverting and descending colostomy. PROCEDURE PERFORMED: Robotic assisted laparoscopic rectosigmoid resection with lysis of adhesions and drainage of abscess, repair of small-bowel enterotomy, mobilization of splenic flexure, take down of colostomy with colorectal anastomosis and cautery of small splenic capsular tear. SURGEON: Jose Becerra MD AD COPY WRITER: Ravi Merino MD [employer] OFFICER: LILIA Andrade ANESTHESIA: General. INDICATIONS FOR THE SURGERY: The patient is an 80-year-old man who in September 2019, had undergone a diverting colostomy for a sigmoid obstruction secondary to diverticular disease. He has now undergone preoperative colonoscopy and preoperative medical and cardiology evaluations for a robotic assisted sigmoid resection with take down of his colostomy and coloproctostomy. Dr. Chou assistance was essential in performing the stapled colorectal anastomosis, as well as preparing the colon for the anastomosis and performing post anastomotic endoscopic examination of the anastomosis. Shelly Willoughby was essential in managing the robotic instrumentation with change of instruments. OPERATIVE PROCEDURE: The patient had performed a mechanical and antibiotic bowel preparation at home. He was brought to the operating room and placed on the table in a supine position. He was placed under general endotracheal anesthesia. TEDs and sequentials were utilized. A Cerda catheter was inserted. He was moved into a low lithotomy position with his legs in padded leg holders. A digital rectal examination showed no significant residual material within the rectum. His ostomy appliance was removed and the stoma was closed with two concentric pursestring sutures of 2-0 silk. The abdomen was then prepped and draped in a sterile fashion. A medium OpSite was placed over the stoma site. Initially, sites were selected for placement of the robotic instruments. An initial incision was made in the left upper quadrant and a Veress needle was inserted. 25% Marcaine was infiltrated at each of the trocar sites as needed. After a positive hanging drop test, the abdomen was inflated with carbon dioxide gas. An 8 mm robotic port was then placed. A second 8 mm port was placed slightly lower into the right and a 12 mm port was placed in the right mid to lower abdomen. A final 8 mm port was placed in the right lower quadrant. The patient was tilted to a slight Trendelenburg position. The patient cart of the da Duncan robot was brought into position and docked to the endoscope port. Targeting took place in the left lower quadrant. The additional robotic arms were then docked to the remaining ports. The SynchroSeal device, a fenestrated bipolar and a grasping retractor were then inserted. I then moved to the control console to begin the procedure. Initially, I inspected the site of the colostomy in the left upper quadrant. There was only some minimal formation of adhesions right at the opening through the abdominal wall. The patient had abundant omental fat evident particularly in the upper abdomen. The focus was then on the pelvis. The patient was tilted into a slight perhaps 15 degree Trendelenburg position. In the left lower quadrant, roughly at the level of the pelvic brim, there several loops of small bowel adherent to the left lower portion of the retroperitoneum. This area was inspected and this revealed that the stapled end of the sigmoid stump was densely adherent to the lateral side of the pelvis. There were two loops of small bowel that were fairly densely adherent to this. Dissection was carried out carefully working through the scar tissue to free the bowel. One portion of bowel appeared to be adherent directly over the staple line at the end of the bowel. This was initially freed and there was no evidence of any perforation of the bowel, though there was a flat area of scarring all along a roughly 3 cm length of the bowel. The second loop of bowel was also densely adherent to the end of the colon, and as this was freed, it was clear that there was a small penetration of the mucosa along one side of the bowel near the junction with the mesentery. This was initially set aside for later repair. The end of the sigmoid was then freed from the retroperitoneum and lateral pelvic wall by dissection primarily using the SynchroSeal device. There were some areas of filmy adhesions that could be broken open, but in areas there was very dense scarring. As this was mobilized better, there was drainage of what appeared to be pus from an area at the end of the colon. As this drained, this was suctioned from the abdomen to prevent any spreading. Dissection was carried partially down into the pelvis roughly to the junction of the sigmoid and rectum. It was clear that mobilization of the splenic flexure would be required and so I elected at this point to assess the colon mobility. Therefore, the patient was returned to a flatter position. The scopes and instruments were redirected into the left mid to upper abdomen. A few filmy adhesions around the inner aspect of the stoma were divided. The mesentery of the colon was identified and the peritoneum was scored and divided particularly laterally using the SynchroSeal device. The mesentery was divided only in a small area that was avascular. Dissection was carried up around the lateral aspect of the descending colon to the splenic flexure. As the omentum in the left upper quadrant was retracted medially, a small amount of bleeding was identified and it was identified that the spleen had sustained a very small superficial tear of the splenic capsule. This was perhaps 1.5 to 2 cm in length. There was a small amount of bleeding. This was covered with a piece of Surgicel and left to see if this would stop bleeding spontaneously as I expected. I elected to return to the dissection in the pelvis. The patient was placed into a step approximately 25 degree Trendelenburg position. Focus was directed back to the pelvis. Dissection continued. There was marked scaring again involving the distal sigmoid and rectosigmoid. Dissection proceeded inferiorly in a circumferential fashion primarily using the SynchroSeal. Along the left side of the rectum, there appeared particularly to be scaring in the pelvis. There were some minor injuries to the superficial muscles of the left side of the rectum. Once the dissections had been carried down to a pliable portion of the bowel, the rectum was transected using several firings of the 45 mm green robotic stapler. The pelvis was copiously irrigated with saline and inspected and there was no evidence of perforation with a good staple line. I elected at this point to address the small bowel perforation. This was better exposed and a 3-0 Vicryl was placed in the wall of the bowel to serve as a traction suture to hold this up. I initially considered just trying to suture the defect closed, but felt that there might be some risks of narrowing, so I elected instead to perform a [id number] anastomosis of the small bowel to itself through the perforation. The bowel was therefore kinked with the perforation on the free side and the perforation was actually extended slightly. Firing of the 45 mm stapler was used to perform a [id number] anastomosis. Two other stay sutures of 3-[address] and a firing of the stapler was used to complete the anastomosis. Inspection showed no bleeding and intact connection. The small residual fragment of the wall from the second stapler firing was placed aside with the rectosigmoid for later removal. The area was irrigated and appeared intact. The other segment of small bowel that had been densely adherent over the end of the sigmoid stump was inspected and again there was no evidence of perforation. At this point, I elected to proceed with freeing of the stoma. Dr. Merino joined me at the patients side. A transverse elliptical incision was made in the skin around the opening of the stoma. Using primarily cautery dissection, the end of the colon was freed through the subcutaneous tissues. The end of the colon was then delivered further through the stomach site. Some scar tissue and the fragments of skin and the actual stoma were then excised. It was necessary to excise a small portion of the end of the colon as it appeared to have been devascularized during the mobilization. The 29 mm sizer would fit into the end of the colon. A 29 mm EEA anvil was made available. A pursestring suture of 2- 0 Prolene was placed in the end of the colon and the anvil was then inserted. Inspection showed that there was a small perforation in the side of the colon that would require an additional excision of approximately 1.5 to 2 cm at the end of the colon. This was performed and a new pursestring was placed. The end of the anvil was inserted and the pursestring was tied down. A small amount of fibrofatty tissue at the end of the bowel was excised so that it would not interfere with the anastomosis. Final end of the colon looked excellent and this was first washed off and then reduced into the abdomen. The abdominal wall was closed with interrupted simple sutures of #1 Vicryl approximating the rectus muscle and fascia all en leela. The abdomen was then re-inflated. It was clear that there was not enough length for the colon to reach the pelvis. The robot was then redirected toward the left upper quadrant, which required un-docking and re-docking the device. The patient was tilted into a mild reversed Trendelenburg position initially and then placed in a more flat position. Dissection was carried across the transverse colon freeing the omentum and reflecting this superiorly. This dissection was carried all the way to at lest the mid portion of the transverse colon. Re-inspection of the spleen showed that there continued to be a small mount of oozing at the small capsular tear. This area was irrigated and some spilled blood was evacuated from the left upper quadrant. With very cautious use of the SynchroSeal device and the fenestrated bipolar, cautery was applied along the length of the tear with complete cessation of any bleeding. The freeing of the splenic flexure was then completed. Dissection was carried completely around the splenic flexure and then posteriorly freeing the lateral and posterior attachments of the distal transverse colon and the descending colon. It was also necessary to incise the peritoneum covering the remaining mesentery of the descending colon. Care was taken not to divide the vascular bundle in this tissue. With these additional steps, it appeared that the end of the colon would reach to the pelvis. The spleen was re-inspected and again there was no bleeding. A piece of Surgicel was obtained and this was placed over the area of the now non-bleeding capsular tear. I now proceeded with the anastomosis. The patient was returned to a steep Trendelenburg position. Dr. Merino moved down to the perineum and inserted the 29 mm stapler into the anus and advanced this to the end of the rectal stump. I grasped the anvil of the stapler with the graspers using the da Duncan robot. Dr. Merino advanced the host of the anvil through the end of the rectal stump and the anvil was then attached and Dr. Merino proceeding to close the stapler and fire it. This was removed and inspection showed excellent tissue donuts in both the proximal and distal portions of tissue. He then proceeded with endoscopic examination of the anastomosis with insufflation of air. A grasper was used to occlude the descending colon and with insufflation of air with the pelvis filled with saline, there was no evidence of any air leak from the anastomosis. I would note that the rectosigmoid and the small fragment from the small bowel anastomosis had been placed in a specimen retrieval bag and removed through the ostomy site when the stoma had been mobilized. The pelvis was irrigated. There was no evidence of any ongoing bleeding. The patient was returned to a flat position. Final inspection in the left upper quadrant revealed no evidence of any further bleeding. The patient had tolerated the procedure well overall. His estimated blood loss was approximately 200 cc. The patient was returned to a flat position. The abdomen was deflated through the robotic ports after un-docking the robot. The 12 mm port was closed with a single 0 Vicryl suture placed using a Matias-Osorio device. The port sites were all closed with buried 4-0 Vicryl. The colostomy site was approximated with skin stan. Sterile dressings were applied. I elected to remove his Cerda catheter and this was accomplished. He was then awakened in the operating room, extubated and moved to the recovery room in stable condition. BLADIMIR
[2020-04-19 14:00] VITALS: BP 162/83
== END 2020-04-19 17:06 | disposition home or self-care (01) | DRG 331 ==
LOC: M OR 04-15 10:29 → M MSPAV 04-15 22:47
PROVIDERS: ADMIT Surgery; ATTEND Surgery
PROC: 0DBP4ZZ Excision of Rectum, Percutaneous Endoscopic Approach (ICD-10-PCS; 2020-04-15)
PROC: 0DB84ZZ Excision of Small Intestine, Percutaneous Endoscopic Approach (ICD-10-PCS; 2020-04-15)
PROC: 0DN84ZZ Release Small Intestine, Percutaneous Endoscopic Approach (ICD-10-PCS; 2020-04-15)
PROC: 8E0W4CZ Robotic Assisted Procedure of Trunk Region, Percutaneous Endoscopic Approach (ICD-10-PCS; 2020-04-15)
PROC: 0DBN4ZZ Excision of Sigmoid Colon, Percutaneous Endoscopic Approach (ICD-10-PCS; principal; 2020-04-15 12:30)
DX: Z43.3 Encounter for attention to colostomy (principal); I25.10 Atherosclerotic heart disease of native coronary artery without angina pectoris; F41.9 Anxiety disorder, unspecified; F32.9 Major depressive disorder, single episode, unspecified; F43.10 Post-traumatic stress disorder, unspecified; E78.5 Hyperlipidemia, unspecified; J44.9 Chronic obstructive pulmonary disease, unspecified; K66.0 Peritoneal adhesions (postprocedural) (postinfection); I10 Essential (primary) hypertension; F17.210 Nicotine dependence, cigarettes, uncomplicated; G47.30 Sleep apnea, unspecified; K57.30 Diverticulosis of large intestine without perforation or abscess without bleeding; Z79.82 Long term (current) use of aspirin; Z79.899 Other long term (current) drug therapy; Z95.5 Presence of coronary angioplasty implant and graft

== ENCOUNTER → 2020-04-10 | Outpatient (CLI) | payer OTHER | LOC: M LABSMTC 09:04 | PROVIDERS: ATTEND Anesthesiology | DX: Z01.812 Encounter for preprocedural laboratory examination (principal); Z20.828 Contact with and (suspected) exposure to other viral communicable diseases ==